=== PATIENT | male | born 1975 | race Caucasian/White ===

== ENCOUNTER 2016-07-01 22:48 | Emergency (ER) | payer BC, OTHER ==
[2016-07-01] MEDS ORDERED: Famotidine IV * 20 MG in NS 0.9% 100 ML* 100 ML IVPB ONE (22:59)
[2016-07-01] MEDS ORDERED: methylPREDNISolone 125 MG* 2 ML VIAL IV ONE (22:59)
[2016-07-01] MEDS ORDERED: NS 0.9% 1000 ML* 1,000 ML IV ONE (22:59)
[2016-07-02 00:49] VITALS: BP 117/76
--- NOTE | 2016-07-02 02:53 | ED ---
Rubin Stafford Karl, scribed for Mohit Fall on 07/01/16 at 2347 . Allergic Reaction/Systemic - HPI Summary HPI Summary: 41 y/o M presents w/ c/o an allergic reaction. Pt stated that he ate a colten approx 1 hr ago and shortly after had itchy hands, swollen lips, and hives all over his body. Pt also noted jaw tightness. Pt took 50 mg Benadryl [employer]. - History of Current Complaint Chief Complaint: EDAllergicReaction Time Seen by Provider: 07/01/16 23:04 Hx Obtained From: Patient Timing: Constant - Allergies/Home Medications Allergies/Adverse Reactions: Allergies Allergy/AdvReac Type Severity Reaction Status Date / Time Honey Allergy Rash Verified 07/01/16 23:07 [place] Flavor Allergy Swelling Verified 07/01/16 23:07 Of Face,Lips,& Throat Home Medications: Home Medications Lixafujn-Zjtxvyujylgi-Egaqqduz [Triumeq 600-50-300 mg] 1 tab PO 07/01/16 [ History] HYDROcodone/ACETAMIN 5-325 MG* [[place] 5-325 TAB*] 1 tab PO Q4H PRN MDD 4 [History Confirmed 07/01/16] Sildenafil Citrate [Viagra] 100 mg PO 07/01/16 [History] Zolpidem TAB* [Ambien TAB*] 10 mg PO BEDTIME PRN 07/01/16 [History Confirmed ] PMH/Surg Hx/FS Hx/Imm Hx Previously Healthy: Yes Infectious Disease History: Denies: Traveled Outside the [place] in Last 30 Days - Family History Known Family History: Negative: Cardiac Disease - Social History Alcohol Use: None Substance Use Type: Reports: None Hx Tobacco Use: No Smoking Status (MU): Never Smoked Tobacco Review of Systems Constitutional: Negative Eyes: Negative ENT: Negative Cardiovascular: Negative Respiratory: Negative Gastrointestinal: Negative Genitourinary: Negative Musculoskeletal: Negative Positive: Rash Neurological: Negative Psychological: Normal All Other Systems Reviewed And Are Negative: Yes Physical Exam Triage Information Reviewed: Yes Vital Signs On Initial Exam: Initial Vitals BP 119/80 07/01/16 23:14 Vital Signs Reviewed: Yes Appearance: Positive: Well-Appearing, No Pain Distress Skin: Positive: Other - diffuse erythematous rash all over body Head/Face: Positive: Normal Head/Face Inspection Eyes: Positive: EOMI, AYALA ENT: Positive: Normal ENT inspection Neck: Positive: Supple, Nontender Respiratory/Lung Sounds: Positive: Clear to Auscultation, Breath Sounds Present Cardiovascular: Positive: RRR, Pulses are Symmetrical in both Upper and Lower Extremities Abdomen Description: Positive: Nontender, Soft Bowel Sounds: Positive: Present Musculoskeletal: Positive: Normal, Strength/ROM Intact Neurological: Positive: Normal, Sensory/Motor Intact, Alert, Oriented to Person Place, Time Psychiatric: Positive: Affect/Mood Appropriate Diagnostics - Vital Signs Vital Signs Temp Pulse Resp BP Pulse Ox 07/02/16 00:49 98.7 F 85 16 117/76 07/02/16 00:45 87 117/76 97 07/02/16 00:30 80 108/83 96 07/02/16 00:01 79 116/84 97 07/02/16 00:00 75 97 07/01/16 23:30 100 128/80 98 07/01/16 23:16 87 97 07/01/16 23:14 119/80 - Laboratory Lab Statement: Any lab studies that have been ordered have been reviewed, and results considered in the medical decision making process. Allergic Reaction Course/Dx - Diagnoses Provider Diagnoses: Food allergy, Allergic reaction Discharge - Discharge Plan Condition: Stable Disposition: HOME Prescriptions: Prednisone [Deltasone] 50 mg PO ONCE #4 tab Patient Education Materials: Food Allergy (ED) Referrals: Dany Vázquez MD [Primary Care Provider] - Additional Instructions: Please follow up with your primary care provider in the next 3 days. The documentation as recorded by the Rubin lewis Karl accurately reflects the service I personally performed and the decisions made by Eufemia rooney Emmanuel.
== END 2016-07-02 00:49 | disposition home or self-care (01) ==
LOC: ED 22:48
DX: T78.1XXA Other adverse food reactions, not elsewhere classified, initial encounter (principal); L50.0 Allergic urticaria; X58.XXXA Exposure to other specified factors, initial encounter; Y92.9 Unspecified place or not applicable
CPT/HCPCS: 96360; 99283; J2930

== ENCOUNTER 2017-02-07 13:26 | Inpatient (IN) | payer BC ==
[2017-02-07 15:16] LABS: Hematocrit 46 % (42-52); Hemoglobin 16.1 g/dl (14.0-18.0); Mean Corpuscular HGB Conc 35 g/dl (31-36); Mean Corpuscular Hemoglobin 31 pg (27-31); Mean Corpuscular Volume 90 fL (80-94); Mean Platelet Volume 10 um3 (7.4-10.4); Red Blood Count 5.14 10^6/ul (4.0-5.4); Red Cell Distribution Width 13 % (10.5-15); White Blood Count 5.3 10^3/ul (3.5-10.8)
[2017-02-07 15:22] LABS: Urine Bilirubin Negative (Negative); Urine Glucose Negative (Negative); Urine Nitrite Negative (Negative)
[2017-02-07 15:41] LABS: ALT 12 U/L (7-52); AST 15 U/L (13-39); Albumin 4.5 g/dL (3.2-5.2); Alkaline Phosphatase 44 U/L (34-104); Anion Gap 6 mmol/L (2-11); BUN/Creatinine Ratio 13.1 (8-20); Blood Urea Nitrogen 21 mg/dL (6-24); CO2 Carbon Dioxide 28 mmol/L (22-32); Calcium 9.8 mg/dL (8.6-10.3); Chloride 104 mmol/L (101-111); EGFR African American 62.2 (>60); EGFR Non-African American 48.4 (>60); Globulin 3.2 g/dL (2-4); Glucose 101 mg/dL (70-100); Potassium 3.8 mmol/L (3.5-5.0); Sodium 138 mmol/L (133-145); Total Protein 7.7 g/dL (6.4-8.9)
[2017-02-07 15:49] LABS: Benzodiazepine Urine Screen None Detected (None Detect)
[2017-02-07 15:50] LABS: Acetaminophen < 15 mcg/mL; Alcohol < 10 mg/dL (<10); Lithium 1.19 mmol/L (0.6-1.2); Salicylate < 2.50 mg/dL (<30)
[2017-02-07 16:03] LABS: TSH (Thyroid Stimulating Horm) 2.18 mcIU/mL (0.34-5.60)
[2017-02-08] MEDS ORDERED: Acetaminophen TAB* 325 MG PO PRN (05:28)
[2017-02-08] MEDS ORDERED: Al Hydrox/Mg Hydrox/Simet LIQ* 30 ML UDC PO PRN (05:28)
[2017-02-08] MEDS ORDERED: ABACAVIR PO SCH (09:00)
[2017-02-08] MEDS ORDERED: DOLUTEGRAVIR PO SCH (09:00)
[2017-02-08] MEDS ORDERED: Lithium Carbonate TAB* 300 MG PO SCH ×3 (09:00→21:00)
[2017-02-08] MEDS ORDERED: LAMIVUDINE PO SCH (09:00)
[2017-02-08] MEDS: Vitamin THERAPEUTIC TAB PO SCH (09:58)
--- NOTE | 2017-02-08 10:05 | HP ---
H&P (Free Text) History and Physical: HPI: ---- Patient is a 41yo male with PPHx significant for Bipolar d/o, ADHD, Social Anxiety d/o, and hx of multiple ED visits due to psychotic(paranoia/LYLE) symptoms. Patient presents to the [facility] ED, brought in by his boyfriend, reporting worsening MH symptoms over the past 3 days. Of note, patient reports recently starting [place]. He reports started back with outpt MH services in 12/2016, after years without. Patient reports being started at that time on [place] 300mg po TID. He reports 1 week ago his dose was increased to 1200mg daily(600mg in am, 300mg in pm, and another 300mg po qhs) for mood stabilization. Patient reports since this dose increase, he has experienced disorganized thinking, memory loss , difficulty expressing himself and delayed speech. Patient reports these symptoms have exacerbated over the last 3 days. He reports last taking [place] the morning of presentation to the [facility] ED. Patient reports initially seeking to re-start outpt MH treatment due to difficulties at work. He reports dx of ADHD and treatment with Adderall. Patient reports starting Adderall in 2002 and finding benefit to his symptoms up until 2012. He reports during 2013 dealing with SAURABH issues, and reports daily use of illicit substances. He reports sobering up within the same year. Patient reports finding after becoming sober that his Adderall dose was causing paranoia, racing thoughts, rumination and LYLE. Patient reports hx of multiple ED visits due to "noticing elements of design". Patient described this as "noticing the correlation of things". Patient reports then noticing these correlations, he would ruminate as to their meaning. Patient stated, "my inclination is to research". Of note, patient is HIV positive and has been on multiple meds which may have affected the metabolism of Adderall. Patient also would like a CT of head to r/o structural issues. Patient reports his rumination on these things have caused decreased productivity at work and recent reprimands. Patient feels these psychotic symptoms were likely amphetamine induced. Patient has since stopped Adderall about 1 month ago. He reports though ongoing rumination, LYLE, and episodes of disorganized thinking. He reports desire to start another med to mx his ADHD. On the unit, patient reports increased anxiety, ongoing LYLE, episodes of disorganized thinking, memory loss, difficulty expressing himself and delayed speech. Patient reports he has noted improved memory, difficulty expressing himself, and improved delay in his speech. Patient reports his sleep is wnl. He reports this due to benefit of Ambien. Patient denies alcohol abuse. Patient denies use of illicit substances in the last 5 years. Patient reports multiple remote suicide attempts with hospitalizations, last 5yrs ago by cutting. Patient is amenable to a wash out period without mood stabilizers over the weekend and re-evaluation of symptoms on Sunday. He reports feeling safe on the unit. He denies SI/HI and AH/VH. Past Psych Hx: Inpt - Patient has multiple inpt hospitalizations for decompensated schizophrenia symptoms. Outpt - Only recently began with an outpt provider Psychotropic med hx - Celexa(s/e - induced hypomania), [place], Depakote, Klonopin Suicide attempt Hx / SIB Hx: Patient reports multiple remote suicide attempts with hospitalizations, last 5yrs ago by cutting. Substance Hx: Patient denies alcohol abuse. Patient denies use of illicit substances in the last 5 years. Medical Hx: HIV TBI Allergies: --------- [place] Flavor Amphetamine Dextroamphetamine Social Hx: --------- -Patient in a long-term relationship with his male partner. -Patient lives with his partner. -Patient is a college grad. -Patient is currently employed. -Patient reports assess to weapons in his home. Home Medications: Home Medications Medication Instructions Recorded Confirmed Type Bglknzjy-Ysgvandqdvhc-Kghpeptl 1 tab PO DAILY 07/01/16 02/08/17 History [Triumeq 600-50-300 mg] Sildenafil Citrate [Viagra] 100 mg PO DAILY PRN 07/01/16 02/08/17 History Zolpidem TAB* [Ambien TAB*] 10 mg PO BEDTIME 07/01/16 02/08/17 History [place] Carbonate [Lithobid] 300 mg PO BEDTIME 02/08/17 02/08/17 History [place] Carbonate [Lithobid] 300 mg PO QPM 02/08/17 02/08/17 History [place] Carbonate [Lithobid] 600 mg PO DAILY 02/08/17 02/08/17 History VITALS: Vital Signs (72 hours) 02/07/17 02/08/17 02/08/17 13:28 07:38 10:35 Temperature 98.4 F 98.5 F Pulse Rate 93 82 Respiratory 16 16 16 Rate Blood Pressure 117/84 121/80 (mmHg) O2 Sat by Pulse 97 99 Oximetry 02/08/17 02/08/17 02/09/17 20:03 23:20 06:51 Temperature 98.5 F Pulse Rate 65 Respiratory 16 18 16 Rate Blood Pressure 116/81 (mmHg) O2 Sat by Pulse 99 Oximetry 02/09/17 08:34 Temperature Pulse Rate Respiratory 16 Rate Blood Pressure (mmHg) O2 Sat by Pulse Oximetry LABS: ------- Laboratory Tests 02/07/17 02/07/17 02/07/17 14:05 15:00 15:00 WBC 5.3 RBC 5.14 Hgb 16.1 Hct 46 MCV 90 MCH 31 MCHC 35 RDW 13 Plt Count 209 MPV 10 Neut % (Auto) 59.6 Lymph % (Auto) 30.4 [place] % (Auto) 6.8 Eos % (Auto) 2.1 Baso % (Auto) 1.1 Absolute Neuts (auto) 3.2 Absolute Lymphs (auto) 1.6 Absolute Monos (auto) 0.4 Absolute Eos (auto) 0.1 Absolute Basos (auto) 0.1 Absolute Nucleated RBC 0 Nucleated RBC % 0 Sodium 138 Potassium 3.8 Chloride 104 Carbon Dioxide 28 Anion Gap 6 BUN 21 Creatinine 1.60 H Est GFR ( Amer) 62.2 Est GFR (Non-Af Amer) 48.4 BUN/Creatinine Ratio 13.1 Glucose 101 H Calcium 9.8 Total Bilirubin 0.80 AST 15 ALT 12 Alkaline Phosphatase 44 Total Protein 7.7 Albumin 4.5 Globulin 3.2 Albumin/Globulin Ratio 1.4 TSH 2.18 Urine Color Yellow Urine Appearance Cloudy Urine pH 7.0 Ur Specific [place] 1.023 Urine Protein Negative Urine Ketones Negative Urine Blood Negative Urine Nitrate Negative Urine Bilirubin Negative Urine Urobilinogen Positive H Ur Leukocyte Esterase Negative Urine Glucose Negative Salicylates < 2.50 Urine Opiates Screen Acetaminophen < 15 Ur Barbiturates Screen Ur Phencyclidine Scrn Ur Amphetamines Screen U Benzodiazepines Scrn [place] 1.19 Urine Cocaine Screen U Cannabinoids Screen Serum Alcohol < 10 02/07/17 15:00 WBC RBC Hgb Hct MCV MCH MCHC RDW Plt Count MPV Neut % (Auto) Lymph % (Auto) [place] % (Auto) Eos % (Auto) Baso % (Auto) Absolute Neuts (auto) Absolute Lymphs (auto) Absolute Monos (auto) Absolute Eos (auto) Absolute Basos (auto) Absolute Nucleated RBC Nucleated RBC % Sodium Potassium Chloride Carbon Dioxide Anion Gap BUN Creatinine Est GFR ( Amer) Est GFR (Non-Af Amer) BUN/Creatinine Ratio Glucose Calcium Total Bilirubin AST ALT Alkaline Phosphatase Total Protein Albumin Globulin Albumin/Globulin Ratio TSH Urine Color Urine Appearance Urine pH Ur Specific [place] Urine Protein Urine Ketones Urine Blood Urine Nitrate Urine Bilirubin Urine Urobilinogen Ur Leukocyte Esterase Urine Glucose Salicylates Urine Opiates Screen None detected Acetaminophen Ur Barbiturates Screen None detected Ur Phencyclidine Scrn None detected Ur Amphetamines Screen None detected U Benzodiazepines Scrn None detected [place] Urine Cocaine Screen None detected U Cannabinoids Screen None detected Serum Alcohol PHYSICAL EXAM: GEN - in NAD, thin build, looks stated age HEENT - NC/AT, EOEMI, no lesions or discharge noted, conjunctivae clear NECK - supple, no JVD, no LAD, CARDIAC - S1/S2, no discernable murmurs ABD - (+) BS x 4 quad, non-tender EXT - no edema, no lesions MUSCULOSKEL - 5/5 muscle strength in all extremities SKIN - intact, no lesions NEURO - CN 2-12, steady gait MSE: ----- Appearance - thin build male, looks stated age fair hygeine, in NAD Behavior - mild PMA, cooperative Speech - spontaneous, RVR, prosody wnl Eye Contact - good Mood - "anxious" Affect - anxious TP - linear TC - ruminations on recent MH symptoms, what caused them Perception - LYLE, no AH/VH reported, no paranoia Orientation - A&Ox4 Insight - fair Judgment - fair Impulse control - fair SI / HI - SI prior to admission with plan to stop his HIV meds, currently he denies both ASSESSMENT: 1. [place] allergic response 2. Bipolar 2 d/o, depressed, severe w/PFs 3. Social Anxiety d/o 4. ADHD PLAN: ------ 1. Continue admission to [facility] for safety and symptom mx. 2. Continue HIV meds as currently prescribed. 3. Will D/C [place] and add as an allergy AED elevated Creatinine and decreased GFR. Patient has only been on med 1 week. 4. Patient amenable to a wash out period over the upcoming weekend. Will then re -evaluate patient's symptoms. 5. Patient gives informed consent to start Gabapentin for current anxiety. 6. Will continue to HOLD Adderall due to patient's recent sensitivity to it. Likely drug-drug interactions with HIV meds affecting Adderall metabolism. 7. Continue Ambien 10mg po qhs for insomnia. 8. Obtain collateral from [facility] providers and patient's partner. 9. Patient to participate in milieu activities and groups.
[2017-02-08] MEDS: Gabapentin CAP(*) 100 MG PO SCH (20:03)
[2017-02-08] MEDS: Zolpidem TAB* 10 MG PO SCH (20:03)
[2017-02-08] MEDS: LAMIVUDINE PO SCH (20:25)
[2017-02-08] MEDS: DOLUTEGRAVIR PO SCH (20:25)
[2017-02-08] MEDS: ABACAVIR PO SCH (20:25)
[2017-02-08] MEDS ORDERED: ABACAVIR DOLUTEGRAVIR LAMIVUDI PO SCH (21:00)
[2017-02-09] MEDS: Vitamin THERAPEUTIC TAB PO SCH (08:33)
[2017-02-09] MEDS: Gabapentin CAP(*) 100 MG PO SCH ×3 (08:34→20:29)
--- NOTE | 2017-02-09 11:22 | ED ---
Antione Stafford Nilda, scribed for Kj Henry MD on 02/07/17 at 1923 . Psychiatric Complaint - HPI Summary HPI Summary: This patient is a 41 year old M presenting to with a chief complaint of general psychiatric issues that have been exacerbated for the past few days. Patient is taking [place] and recently had a dose increase by his psychiatric nurse. The patient rates the pain 0/10 in severity. Patient reports disorganized thoughts, memory loss, racing thoughts, paranoia, and speech difficulty. Patient denies loss of appetite and SI. - History Of Current Complaint Chief Complaint: EDMentalHealth Hx Obtained From: Patient Onset/Duration: Lasting Days, Still Present Timing: Constant Severity Currently: Mild Character: Frustrated Aggravating Factor(s): Other - Medication dosage increase ([place]) Associated Signs And Symptoms: Positive: Confused, Paranoid Behavior Related History: Positive For: Prior Psychiatric Issues - Allergies/Home Medications Allergies/Adverse Reactions: Allergies Allergy/AdvReac Type Severity Reaction Status Date / Time [place] Allergy See Comment Verified 02/08/17 17:34 [place] Flavor Allergy Swelling Verified 02/07/17 13:29 Of Face,Lips,& Throat Amphetamine [From Adderall] AdvReac Unknown See Comment Verified 02/08/17 18:29 Dextroamphetamine AdvReac Unknown See Comment Verified 02/08/17 18:29 [From Adderall] PMH/Surg Hx/FS Hx/Imm Hx Sensory History: Denies: Hx Legally Blind EENT History: Denies: Hx Deafness - Immunization History Date of Tetanus Vaccine: utd Date of Influenza Vaccine: fall 2015 Infectious Disease History: No Infectious Disease History: Denies: Traveled Outside the [place] in Last 30 Days - Family History Known Family History: Positive: Hypertension, Diabetes Negative: Cardiac Disease - Social History Alcohol Use: None Substance Use Type: Reports: None Hx Tobacco Use: No Smoking Status (MU): Never Smoked Tobacco Review of Systems Negative: Fever, Chills Negative: Erythema Negative: Sore Throat Negative: Chest Pain Negative: Shortness Of Breath, Cough Positive: Other - negative loss of appetite. Negative: Abdominal Pain, Vomiting , Nausea Negative: dysuria, hematuria Negative: Myalgia, Edema Negative: Rash Neurological: Other - negative dizziness Psychological: Other - disorganized thoughts, memory loss, racing thoughts, paranoia, and speech difficulty; negative SI All Other Systems Reviewed And Are Negative: Yes Physical Exam - Summary Physical Exam Summary: Constitutional: Well-developed, Well-nourished, Alert. (-) Distressed Skin: Warm, Dry HENT: Normocephalic; Atraumatic Eyes: Conjunctival injection Neck: Musculoskeletal ROM normal neck. (-) JVD, (-) Stridor, (-) Tracheal deviation Cardio: Rhythm regular, rate normal, Heart sounds normal; Intact distal pulses; The pedal pulses are 2+ and symmetric. Radial pulses are 2+ and symmetric. (-) Murmur Pulmonary/Chest wall: Effort normal. (-) Respiratory distress, (-) Wheezes, (-) Rales Abd: Soft, (-) Tenderness, (-) Distension, (-) Guarding, (-) Rebound Musculoskeletal: (-) Edema Lymph: (-) Cervical adenopathy Neuro: Alert, Oriented x3 Psych: Pressured speech, anxious, bearing Triage Information Reviewed: Yes Vital Signs On Initial Exam: Initial Vitals Temp Pulse Resp BP Pulse Ox 98.4 F 93 16 117/84 97 02/07/17 13:28 02/07/17 13:28 02/07/17 13:28 02/07/17 13:28 02/07/17 13:28 Vital Signs Reviewed: Yes - [place] Coma Scale Coma Scale Total: 15 Diagnostics - Vital Signs Vital Signs Temp Pulse Resp BP Pulse Ox 02/07/17 13:28 98.4 F 93 16 117/84 97 - Laboratory Lab Results: Lab Results 02/07/17 02/07/17 02/07/17 Range/Units 14:05 15:00 15:00 WBC 5.3 (3.5-10.8) 10^3/ul RBC 5.14 (4.0-5.4) 10^6/ul Hgb 16.1 (14.0-18.0) g/dl Hct 46 (42-52) % MCV 90 (80-94) fL MCH 31 (27-31) pg MCHC 35 (31-36) g/dl RDW 13 (10.5-15) % Plt Count 209 (150-450) 10^3/ul MPV 10 (7.4-10.4) um3 Neut % (Auto) 59.6 (38-83) % Lymph % (Auto) 30.4 (25-47) % [place] % (Auto) 6.8 (1-9) % Eos % (Auto) 2.1 (0-6) % Baso % (Auto) 1.1 (0-2) % Absolute Neuts (auto) 3.2 (1.5-7.7) 10^3/ul Absolute Lymphs (auto) 1.6 (1.0-4.8) 10^3/ul Absolute Monos (auto) 0.4 (0-0.8) 10^3/ul Absolute Eos (auto) 0.1 (0-0.6) 10^3/ul Absolute Basos (auto) 0.1 (0-0.2) 10^3/ul Absolute Nucleated RBC 0 10^3/ul Nucleated RBC % 0 Sodium 138 (133-145) mmol/L Potassium 3.8 (3.5-5.0) mmol/L Chloride 104 (101-111) mmol/L Carbon Dioxide 28 (22-32) mmol/L Anion Gap 6 (2-11) mmol/L BUN 21 (6-24) mg/dL Creatinine 1.60 H (0.67-1.17) mg/dL Est GFR ( Amer) 62.2 (>60) Est GFR (Non-Af Amer) 48.4 (>60) BUN/Creatinine Ratio 13.1 (8-20) Glucose 101 H (70-100) mg/dL Calcium 9.8 (8.6-10.3) mg/dL Total Bilirubin 0.80 (0.2-1.0) mg/dL AST 15 (13-39) U/L ALT 12 (7-52) U/L Alkaline Phosphatase 44 (34-104) U/L Total Protein 7.7 (6.4-8.9) g/dL Albumin 4.5 (3.2-5.2) g/dL Globulin 3.2 (2-4) g/dL Albumin/Globulin Ratio 1.4 (1-3) TSH 2.18 (0.34-5.60) mcIU/mL Urine Color Yellow Urine Appearance Cloudy Urine pH 7.0 (5-9) Ur Specific [place] 1.023 (1.010-1.030) Urine Protein Negative (Negative) Urine Ketones Negative (Negative) Urine Blood Negative (Negative) Urine Nitrate Negative (Negative) Urine Bilirubin Negative (Negative) Urine Urobilinogen Positive H (Negative) Ur Leukocyte Esterase Negative (Negative) Urine Glucose Negative (Negative) Salicylates < 2.50 (<30) mg/dL Urine Opiates Screen (None Detect) Acetaminophen < 15 mcg/mL Ur Barbiturates Screen (None Detect) Ur Phencyclidine Scrn (None Detect) Ur Amphetamines Screen (None Detect) U Benzodiazepines Scrn (None Detect) [place] 1.19 (0.6-1.2) mmol/L Urine Cocaine Screen (None Detect) U Cannabinoids Screen (None Detect) Serum Alcohol < 10 (<10) mg/dL 02/07/17 Range/Units 15:00 WBC (3.5-10.8) 10^3/ul RBC (4.0-5.4) 10^6/ul Hgb (14.0-18.0) g/dl Hct (42-52) % MCV (80-94) fL MCH (27-31) pg MCHC (31-36) g/dl RDW (10.5-15) % Plt Count (150-450) 10^3/ul MPV (7.4-10.4) um3 Neut % (Auto) (38-83) % Lymph % (Auto) (25-47) % [place] % (Auto) (1-9) % Eos % (Auto) (0-6) % Baso % (Auto) (0-2) % Absolute Neuts (auto) (1.5-7.7) 10^3/ul Absolute Lymphs (auto) (1.0-4.8) 10^3/ul Absolute Monos (auto) (0-0.8) 10^3/ul Absolute Eos (auto) (0-0.6) 10^3/ul Absolute Basos (auto) (0-0.2) 10^3/ul Absolute Nucleated RBC 10^3/ul Nucleated RBC % Sodium (133-145) mmol/L Potassium (3.5-5.0) mmol/L Chloride (101-111) mmol/L Carbon Dioxide (22-32) mmol/L Anion Gap (2-11) mmol/L BUN (6-24) mg/dL Creatinine (0.67-1.17) mg/dL Est GFR ( Amer) (>60) Est GFR (Non-Af Amer) (>60) BUN/Creatinine Ratio (8-20) Glucose (70-100) mg/dL Calcium (8.6-10.3) mg/dL Total Bilirubin (0.2-1.0) mg/dL AST (13-39) U/L ALT (7-52) U/L Alkaline Phosphatase (34-104) U/L Total Protein (6.4-8.9) g/dL Albumin (3.2-5.2) g/dL Globulin (2-4) g/dL Albumin/Globulin Ratio (1-3) TSH (0.34-5.60) mcIU/mL Urine Color Urine Appearance Urine pH (5-9) Ur Specific [place] (1.010-1.030) Urine Protein (Negative) Urine Ketones (Negative) Urine Blood (Negative) Urine Nitrate (Negative) Urine Bilirubin (Negative) Urine Urobilinogen (Negative) Ur Leukocyte Esterase (Negative) Urine Glucose (Negative) Salicylates (<30) mg/dL Urine Opiates Screen None detected (None Detect) Acetaminophen mcg/mL Ur Barbiturates Screen None detected (None Detect) Ur Phencyclidine Scrn None detected (None Detect) Ur Amphetamines Screen None detected (None Detect) U Benzodiazepines Scrn None detected (None Detect) [place] (0.6-1.2) mmol/L Urine Cocaine Screen None detected (None Detect) U Cannabinoids Screen None detected (None Detect) Serum Alcohol (<10) mg/dL Result Diagrams: 02/07/17 15:00 02/07/17 15:00 Lab Statement: Any lab studies that have been ordered have been reviewed, and results considered in the medical decision making process. Course/Dx - Course Course Of Treatment: This patient is a 41 year old M presenting to with a chief complaint of general psychiatric issues that have been exacerbated for the past few days. Patient is taking [place] and recently had a dose increase by his psychiatric nurse. The patient rates the pain 0/10 in severity. Patient reports disorganized thoughts, memory loss, racing thoughts, paranoia, and speech difficulty. Patient denies loss of appetite and SI. [1600] Patient is cleared for MHE. - Differential Dx/Clinical Impression Provider Diagnosis: Paranoid delusion, Psychosis Discharge - Discharge Plan Condition: Stable Disposition: OTHER Discharge Disposition Comment: Mental Health Evaluation The documentation as recorded by the scribe, Talbot,Lakeisha accurately reflects the service I personally performed and the decisions made by me, Kj Henry MD.
--- NOTE | 2017-02-09 12:12 | PN ---
Subjective - Subjective Service Type: 33951 Hosp care 15 min low complexity Subjective: Patient noted to be social with select peers and staff in the milieu. Patient calm, pleasant, and cooperative with staff. He is participating in groups. Patient has ongoing PMA and is anxious in affect. He reports ongoing improvement in his memory and ability to express himself w/o delayed speech. He reports also, ongoing anxiety and LYLE which causes patient to pursue in his mind the meaning of these associations. Patient reports ongoing guilt regarding his behavior affect being diagnosed with HIV. Patients reports not behaving like himself then. He reported a period of significant drug use, anger, and sleeping with men unprotected even though knowing his Dx. Patient reports correlation with the fact that a peer on the unit he spoke with works in the [employer] department. Also during the interview, patient noticed a newspaper clipping with title '...pled not-guilty..". Patient reported these events spoke to his internalized desire to be punished for what he did. Patient encouraged to forgive himself and know he has grown from that place. Patient consumed with correlations he sees on the unit and other LYLE. Patient reports fair sleep and appetite. He denies SI/HI and AH/VH. Objective - Appearance Appearance: Well Developed/Nourished, Thin Framed Dysmorphic Features: No Hygiene: Normal Grooming: Fairly Well Kept - Behavior Psychomotor Activities: Abnormal-Increased Exhibits Abnormal Movement: No - Attitude and Relatedness Attitude and Relatedness: Cooperative Eye Contact: Fair - Speech Quality: Unpressured Latencies: Short Quantity: Copious - Mood Patient's Decription of Mood: "Anxious" - Affect Observed Affect: Tense Affect Consistent with: Dysphoria - Thought Process Patient's Thought Process: Loose Associations Thought Content: No Passive Wish, No Suicidal Planning, No Homicidal Ideation, No Paranoid Ideation - Sensorium Experiencing Hallucinations: No, Sensorium is Clear Type of Hallucinations: Visual: No, Auditory: No, Command: No - Level of Consciousness Level of Consciousness: Alert Orientation: Yes Intact, Yes Orientated to Time, Yes Orientated to Place, Yes Orientated to Person - Impulse Control Impulse Control: Intact - Insight and Judgement Insight and Judgement: Fair - Group Participation Particating in Group Activities: Yes - Medication Management Medication Management Adherence: Yes Assessment - Assessment Merits Inpatient Hospitalization: For Immediate Safety, For Stabilization Inpatient DSM-IV Dx: ASSESSMENT: . 1. [place] allergic response. 2. Bipolar 2 d/o, depressed, severe w/PFs. 3. Social Anxiety d/o. 4. ADHD Plan - Plan Treatment Plan: Name: MARY DAVIS Birthdate: 1975 [id number] PLAN: ------ 1. Continue admission to [facility] for safety and symptom mx. 2. Continue HIV meds as currently prescribed. 3. Will D/C [place] and add as an allergy AED elevated Creatinine and decreased GFR. Patient has only been on med 1 week. 4. Patient amenable to a wash out period over the upcoming weekend with no mood stabilizer or antipsychotic. Will re-evaluate patient's symptoms on Sunday. 5. Continue Gabapentin for current anxiety. 6. Will continue to HOLD Adderall due to patient's recent sensitivity to it. Likely drug-drug interactions with HIV meds affecting Adderall metabolism. 7. Patient gave informed consent to start Strattera 25mg po daily for mx of ADHD symptoms. 8. Will start Clonazepam 0.5mg po BID for ongoing significant anxiety. 9. Continue Ambien 10mg po qhs for insomnia. 10. Will order CT brain as patient is HIV positive and may have structural defects of numerous possible etiologies. 11. Obtain collateral from [facility] providers and patient's partner. 12. Patient to participate in milieu activities and groups. Medications: Current Medications Acetaminophen (Tylenol Tab*) 650 mg PO Q4H PRN PRN Reason: PAIN or TEMP > 101 F Al Hydrox/Mg Hydrox/Simethicone (Maalox Plus*) 30 ml PO Q4H PRN PRN Reason: INDIGESTION Gabapentin (Neurontin Cap(*)) 200 mg PO TID [facility] Last Admin: 02/09/17 08:34 Dose: 200 mg Multivitamins (Theragran Tab*) 1 tab PO DAILY [facility] Last Admin: 02/09/17 08:33 Dose: Not Given Pto Nf Med* Triumeq (Abacavir, Dolutegravir, Lamivudine) 1 admin PO BEDTIME [facility] Last Admin: 02/08/17 20:25 Dose: 1 admin Zolpidem Tartrate (Ambien Tab*) 10 mg PO BEDTIME [facility] Last Admin: 02/08/17 20:03 Dose: 10 mg - Discharge Plan Discharge Plan: Outpatient Follow Up Outpatient Program: Private Clinician(s)
--- NOTE | 2017-02-09 14:32 | PN ---
[facility]: Group Therapy Note - Service Type Service Type: [id number] Group Psychotherapy - Cognitive Behavioral Group Therapy ( CBT):Patient was attentive and participatory in CBT programming this morning, and remained in good behavioral control. Patient expressed positive insights regarding relevant treatment interventions and goals.
[2017-02-09] MEDS ORDERED: clonazePAM TAB(*) 0.5 MG PO SCH ×2 (18:10→18:14)
[2017-02-09] MEDS ORDERED: clonazePAM TAB(*) 0.5 MG PO ONE (18:15)
--- NOTE | 2017-02-09 19:13 | CONS ---
PSYCHOLOGICAL REPORT: DATE OF CONSULT: 02/09/17 REASON FOR REFERRAL: John was referred for personality testing secondary to diagnostic concerns with rule out reflecting psychotic range difficulties consistent with other schizophrenic symptoms and/or bipolar II symptomatology. TEST ADMINISTERED: John completed the [place] Multiphasic Personality Inventory-2 (MMPI-2). He was given feedback regarding test results in individual conversation. 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 He describes aspirations about possibly entering an [employer] program as he is hopeful of fulfilling potential in a more fulfilling fashion. John describes historical difficulties with attention deficit hyperactivity disorder and in fact was displaying some mild agitation throughout the interview characterized by foot and hand movement. He impresses as being able to attend to discussion fairly well, however, but describes historical problems with focus to the point of being very disruptive to his ability to officially process information. He describes and points some various kinds of ticks to help him control his habitual difficulties and attention deficit symptoms, describing how he rewinds himself to "rely on the process." He describes his use of stimulants as presenting with recurrent difficulties in regards to increased disorganized thinking to the point of psychosis at times. He feels that this exacerbates a bipolar process as well where his thinking tends to disintegrate and impair his intellectual function. Recent efforts to control mood and stability with [place] were met with an apparent allergic reaction where he apparently expressed some liver toxicity. John identifies as homosexual and in part his presentation included the thoughts of discontinuing his HIV medications. BEHAVIORAL OBSERVATIONS: John has been seen in the context of cognitive behavioral group psychotherapy as well as in the aforementioned individual session for feedback regarding test results. Presently, John is able to discuss his history in a relevant and topical fashion and expresses thoughts in a linear and coherent fashion. He feels that this has improved markedly since admission and is able to recall his difficulties with disorganization in thought with clarity. He is concerned about possible psychotic processing, describing in some detail what impress this underwriter mortgage loan as an internal dialogue. However, John feels this internal dialogue is very intrusive to his functioning at times and although he acknowledges it as being from within and generated by his own thoughts, is still quite disturbed at the intrusiveness of this process at times. In the group context, John presents with good affect that is appropriately variable with conversation. He is able to track clinical discussions and exhibits a healthy sense of humor. His affect is appropriately variable with conversation, and he interacts with peers and staff in an empathic and respectful fashion. He has been compliant with recommended medications and impresses as being grateful for having an opportunity to address his questions about medications in a safe and structured unit. TEST RESULTS: John provides a valid protocol on this administration of the MMPI- 2 having slight elevations on the emotional stress scales and concomitant low scoring occurring on emotional coping and self-esteem. He has slight elevations on the depression and schizophrenia scales, as well as on the social introversion scale. All these elevations occur between T scores of 65 and 70 with schizophrenia scale being the highest point elevation. Feedback with John emphasized the importance of trying to mediate attention deficit symptomatology without utilization of a stimulant as this appears to have led to recurrent disruptions in cognitive symptoms. He impresses as having good insight in this regard and is hopeful of finding success in a secondary mood stabilizing medication to effectively ameliorate his symptomatology. DIAGNOSTIC IMPRESSION: Supports bipolar II process occurring. There are no concerns regarding characterological vulnerabilities consistent with an axis II diagnosis. [id number]/[id number] #: [id number] SHEA
[2017-02-09] MEDS: DOLUTEGRAVIR PO SCH (20:28)
[2017-02-09] MEDS: LAMIVUDINE PO SCH (20:28)
[2017-02-09] MEDS: ABACAVIR PO SCH (20:28)
[2017-02-09] MEDS: Zolpidem TAB* 10 MG PO SCH (20:29)
--- NOTE | 2017-02-09 21:28 | RAD ---
INDICATION: Memory difficulty COMPARISON: None. TECHNIQUE: Contiguous axial sections of the brain were obtained from the skull base to the vertex without contrast. FINDINGS: The ventricles, cisterns and sulci are within normal limits. The awan-white matter differentiation is adequately maintained and there is no sulcal effacement. No significant focal abnormality or mass effect is present. There is no evidence for intracranial hemorrhage. No significant focal osseous abnormality is present. The visualized portion of the paranasal sinuses and mastoid air cells appear clear. IMPRESSION: Normal CT of the brain.
[2017-02-10] MEDS: Vitamin THERAPEUTIC TAB PO SCH (08:03)
[2017-02-10] MEDS: Gabapentin CAP(*) 100 MG PO SCH ×2 (08:03→13:51)
[2017-02-10] MEDS: CMCS: Atomoxetine(NF) 25 MG CAP PO SCH (08:04)
[2017-02-10] MEDS: clonazePAM TAB(*) 0.5 MG PO SCH ×2 (08:04→13:51)
[2017-02-11] MEDS: clonazePAM TAB(*) 0.5 MG PO SCH ×2 (07:14→13:38)
[2017-02-11] MEDS: Gabapentin CAP(*) 100 MG PO SCH ×4 (08:25→20:03)
[2017-02-11] MEDS: CMCS: Atomoxetine(NF) 25 MG CAP PO SCH (08:25)
[2017-02-11] MEDS: Vitamin THERAPEUTIC TAB PO SCH (08:26)
--- NOTE | 2017-02-11 14:39 | PN ---
<RodrigueAnn - Last Filed: 02/11/17 15:02> Subjective - Subjective Service Type: 95071 Hosp care 15 min low complexity Subjective: Patient found walking around milieu holding his notebook. He is pleasant and wants to talk. He is alert and oriented, speech is pressured, thoughts are organized, all related to his "analytical plan" to make his life better. Denies suicidal ideation or auditory/visual hallucinations. He feels Klonopin is helping his anxiety. 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 Overall pleasant, somewhat grandiose. Objective - Appearance Appearance: Well Developed/Nourished Dysmorphic Features: No Hygiene: Normal Grooming: Fairly Well Kept - Behavior Psychomotor Activities: Normal Exhibits Abnormal Movement: No - Attitude and Relatedness Attitude and Relatedness: Cooperative Eye Contact: Fair - Speech Quality: Pressured Latencies: Short Quantity: Copious - Mood Patient's Decription of Mood: "Good" - Affect Observed Affect: Fair Affect Consistent with: Dysphoria - Thought Process Patient's Thought Process: Coherent, Goal Directed Thought Content: No Passive Wish, No Suicidal Planning, No Homicidal Ideation, No Paranoid Ideation - Sensorium Experiencing Hallucinations: No, Sensorium is Clear Type of Hallucinations: Visual: No, Auditory: No, Command: No - Level of Consciousness Level of Consciousness: Alert Orientation: Yes Intact, Yes Orientated to Time, Yes Orientated to Place, Yes Orientated to Person - Impulse Control Impulse Control: Tenuous - Insight and Judgement Insight and Judgement: Impaired - Group Participation Particating in Group Activities: Yes - Medication Management Medication Management Adherence: Yes Assessment - Assessment Merits Inpatient Hospitalization: For Stabilization, For Ongoing Evaluation, Consolidate Improvements Inpatient DSM-IV Dx: ASSESSMENT: . 1. [place] allergic response. 2. Bipolar 2 d/o, depressed, severe w/PFs. 3. Social Anxiety d/o. 4. ADHD Clinical Impression: This 41 yr.old male with history of Bipolar, ADHD, social anxiety and substance use d/o.with multiple ED visits for psychotic thoughts (paranoia). Brought to ED by boyfriend for worsening symptoms of psychosis. He was last hospitalized 5 years go with suicidal ideation and cutting. Reports stopping substance use in 2012. Had not received psychiatric outpatient treatment for 5 years; began outpatient treatment again in 12/2016, when he was started on [place] 300mg, tid.One week prior to hospitalization, [place] was increased to 600mg AM, 300mg afternoon and hs. He reports since increase in disorganized thinking, memory loss and being unable to express himself verbally.Patient agreed to withholding of mood stabilizers through the weekend with reassessment of need on Sunday. He is medically stable and taking his HIV medications as he was at home. Requires continued hospitalization for further evaluation and treatment. Plan - Plan Treatment Plan: Name: MARY DAVIS Birthdate: 1975 [id number] Medications: Current Medications Acetaminophen (Tylenol Tab*) 650 mg PO Q4H PRN PRN Reason: PAIN or TEMP > 101 F Al Hydrox/Mg Hydrox/Simethicone (Maalox Plus*) 30 ml PO Q4H PRN PRN Reason: INDIGESTION Atomoxetine HCl (Strattera(Nf)) 25 mg PO DAILY [facility] Last Admin: 02/11/17 08:25 Dose: 25 mg Clonazepam (Klonopin Tab(*)) 0.5 mg PO 0700,1400 [facility] Last Admin: 02/11/17 13:38 Dose: 0.5 mg Gabapentin (Neurontin Cap(*)) 200 mg PO TID [facility] Last Admin: 02/11/17 13:39 Dose: 200 mg Multivitamins (Theragran Tab*) 1 tab PO DAILY [facility] Last Admin: 02/11/17 08:26 Dose: Not Given Pto Nf Med* Triumeq (Abacavir, Dolutegravir, Lamivudine) 1 admin PO BEDTIME [facility] Last Admin: 02/09/17 20:28 Dose: 1 admin Zolpidem Tartrate (Ambien Tab*) 10 mg PO BEDTIME [facility] Last Admin: 02/09/17 20:29 Dose: 10 mg <Blayne Gamino - Last Filed: 02/11/17 18:16> Subjective - Subjective Subjective: Reviewed this note written by student psychiatric nurse practitioner, Ann Husain, and approved it after discussion with her. Plan - Plan Treatment Plan: Name: MARY DAVIS Birthdate: 1975 [id number] Medications: Current Medications Acetaminophen (Tylenol Tab*) 650 mg PO Q4H PRN PRN Reason: PAIN or TEMP > 101 F Al Hydrox/Mg Hydrox/Simethicone (Maalox Plus*) 30 ml PO Q4H PRN PRN Reason: INDIGESTION Atomoxetine HCl (Strattera(Nf)) 25 mg PO DAILY [facility] Last Admin: 02/11/17 08:25 Dose: 25 mg Clonazepam (Klonopin Tab(*)) 0.5 mg PO 0700,1400 [facility] Last Admin: 02/11/17 13:38 Dose: 0.5 mg Gabapentin (Neurontin Cap(*)) 200 mg PO TID [facility] Last Admin: 02/11/17 17:55 Dose: Not Given Multivitamins (Theragran Tab*) 1 tab PO DAILY [facility] Last Admin: 02/11/17 08:26 Dose: Not Given Pto Nf Med* Triumeq (Abacavir, Dolutegravir, Lamivudine) 1 admin PO BEDTIME [facility] Last Admin: 02/11/17 17:56 Dose: Not Given Zolpidem Tartrate (Ambien Tab*) 10 mg PO BEDTIME [facility] Last Admin: 02/11/17 17:56 Dose: Not Given
[2017-02-11] MEDS: Zolpidem TAB* 10 MG PO SCH ×2 (17:56→20:53)
[2017-02-11] MEDS: ABACAVIR PO SCH ×2 (17:56→20:04)
[2017-02-11] MEDS: DOLUTEGRAVIR PO SCH ×2 (17:56→20:04)
[2017-02-11] MEDS: LAMIVUDINE PO SCH ×2 (17:56→20:04)
[2017-02-12] MEDS: Gabapentin CAP(*) 100 MG PO SCH ×3 (07:15→19:35)
[2017-02-12] MEDS: clonazePAM TAB(*) 0.5 MG PO SCH ×2 (07:15→13:58)
[2017-02-12] MEDS: CMCS: Atomoxetine(NF) 25 MG CAP PO SCH (07:16)
[2017-02-12] MEDS: Vitamin THERAPEUTIC TAB PO SCH (09:46)
--- NOTE | 2017-02-12 17:46 | PN ---
Subjective - Subjective Service Type: [id number] Hosp care 15 min low complexity Subjective: Mary remains the same with regards to his understanding of his complex ( his opinion ) mental health problem. Analytic, talkative, at times irrational and over inclusive. Overall doesn't appear to be in any acute distress and wants to explore his problems, reasons and solutions. I can see some possible somatization as well. Reports that he feels much better on current meds. Denies hallucinations, delusions SI/HI. Objective - Appearance Appearance: Healthy Appearing Dysmorphic Features: No Hygiene: Normal Grooming: Fairly Well Kept - Behavior Psychomotor Activities: Normal Exhibits Abnormal Movement: No - Attitude and Relatedness Attitude and Relatedness: Appropriate Eye Contact: Good - Speech Quality: Pressured Latencies: Short Quantity: Copious - Mood Patient's Decription of Mood: "Fine" - Affect Observed Affect: Expansive Affect Consistent with: Euthymia - Thought Process Patient's Thought Process: Coherent, Over Inclusive Thought Content: No Passive Wish, No Suicidal Planning, No Homicidal Ideation, No Paranoid Ideation - Sensorium Experiencing Hallucinations: No, Sensorium is Clear Type of Hallucinations: Visual: No, Auditory: No, Command: No - Level of Consciousness Level of Consciousness: Alert Orientation: Yes Intact, Yes Orientated to Time, Yes Orientated to Place, Yes Orientated to Person - Impulse Control Impulse Control: Intact - Insight and Judgement Insight and Judgement: Poor - Group Participation Particating in Group Activities: Yes - Medication Management Medication Management Adherence: Yes Assessment - Assessment Merits Inpatient Hospitalization: Diagnosis Determination, For Ongoing Evaluation, For Discharge Planning Inpatient DSM-IV Dx: ASSESSMENT: . 1. [place] allergic response. 2. Bipolar 2 d/o, depressed, severe w/PFs. 3. Social Anxiety d/o. 4. ADHD Clinical Impression: Appears to have improved significantly and can easily be managed in an outpatient settings. Plan - Plan Treatment Plan: Name: MARY DAVIS Birthdate: 1975 [id number] Continued Medication Management: Continue Outpt Medication Medications: Current Medications Acetaminophen (Tylenol Tab*) 650 mg PO Q4H PRN PRN Reason: PAIN or TEMP > 101 F Al Hydrox/Mg Hydrox/Simethicone (Maalox Plus*) 30 ml PO Q4H PRN PRN Reason: INDIGESTION Atomoxetine HCl (Strattera(Nf)) 25 mg PO DAILY [facility] Last Admin: 02/12/17 07:16 Dose: 25 mg Clonazepam (Klonopin Tab(*)) 0.5 mg PO 0700,1400 [facility] Last Admin: 02/12/17 13:58 Dose: 0.5 mg Gabapentin (Neurontin Cap(*)) 200 mg PO TID [facility] Last Admin: 02/12/17 13:58 Dose: 200 mg Multivitamins (Theragran Tab*) 1 tab PO DAILY [facility] Last Admin: 02/12/17 09:46 Dose: Not Given Pto Nf Med* Triumeq (Abacavir, Dolutegravir, Lamivudine) 1 admin PO BEDTIME [facility] Last Admin: 02/11/17 20:04 Dose: 1 admin Zolpidem Tartrate (Ambien Tab*) 10 mg PO BEDTIME [facility] Last Admin: 02/11/17 20:53 Dose: 10 mg - Discharge Plan Discharge Plan: Outpatient Follow Up Outpatient Program: [facility]
[2017-02-12] MEDS: LAMIVUDINE PO SCH (19:36)
[2017-02-12] MEDS: ABACAVIR PO SCH (19:36)
[2017-02-12] MEDS: DOLUTEGRAVIR PO SCH (19:36)
[2017-02-12] MEDS: Zolpidem TAB* 10 MG PO SCH (21:32)
[2017-02-13] MEDS: Vitamin THERAPEUTIC TAB PO SCH (07:38)
[2017-02-13] MEDS: Gabapentin CAP(*) 100 MG PO SCH ×3 (07:38→20:11)
[2017-02-13] MEDS: CMCS: Atomoxetine(NF) 25 MG CAP PO SCH (07:39)
[2017-02-13] MEDS: clonazePAM TAB(*) 0.5 MG PO SCH ×2 (07:39→14:40)
[2017-02-13 07:57] VITALS: BP 113/76
--- NOTE | 2017-02-13 11:06 | PN ---
Subjective - Subjective Service Type: 47136 Hosp care 15 min low complexity Subjective: Patient noted to be visible in the milieu, social, cooperative and attending groups. Patient is calmer in affect and brighter. He reports improved mood and level of anxiety. Patient reports no further issues with wording finding, or decreased ability to express himself and or the delayed speech he noted on admission. He reports also feeling more in control of his thoughts. Patient does not demonstrate LYLE, but is linear and GD in TP. Patient expresses benefit from groups and displays insight to his tendency to ruminate on his observations, to the detriment of his work performance. He feels more in control of his thoughts and reports gaining coping mechanisms to help him re-focus and prioritized his thoughts. Patient is future oriented and reports desire for discharge tomorrow so to make his PCP and HIV clinic appts on . Patient reports these are out of town. Patient reports improved ability to concentrate and improved memory. He is amenable to increase in Strattera to 40mg po daily as he has noted only mod benefit on the 25mg daily dose. Patient reports no LOPEZ, CP, Abd pain. He denies N/V/C/D. He reports no issue with urination. Patient denies SI/HI and AH/VH. Sleep and appetite are wnl. Objective - Appearance Appearance: Well Developed/Nourished Dysmorphic Features: No Hygiene: Normal Grooming: Fairly Well Kept - Behavior Psychomotor Activities: Normal Exhibits Abnormal Movement: No - Attitude and Relatedness Attitude and Relatedness: Cooperative Eye Contact: Good - Speech Quality: Unpressured Latencies: Normal Quantity: Appropriate - Mood Patient's Decription of Mood: "Good" - Affect Observed Affect: Euphoric Affect Consistent with: Euthymia - Thought Process Patient's Thought Process: Coherent, Goal Directed Thought Content: No Passive Wish, No Suicidal Planning, No Homicidal Ideation, No Paranoid Ideation - Sensorium Experiencing Hallucinations: No, Sensorium is Clear Type of Hallucinations: Visual: No, Auditory: No, Command: No - Level of Consciousness Level of Consciousness: Alert Orientation: Yes Intact, Yes Orientated to Time, Yes Orientated to Place, Yes Orientated to Person - Impulse Control Impulse Control: Intact - Insight and Judgement Insight and Judgement: Fair - Group Participation Particating in Group Activities: Yes - Medication Management Medication Management Adherence: Yes Assessment - Assessment Merits Inpatient Hospitalization: For Immediate Safety, For Stabilization Inpatient DSM-IV Dx: ASSESSMENT: . 1. [place] allergic response vs toxicity. 2. Bipolar 2 d/o, depressed, severe w/PFs. 3. Social Anxiety d/o. 4. ADHD Plan - Plan Treatment Plan: Name: MARY DAVIS Birthdate: 1975 [id number] PLAN: ------ 1. Continue admission to [facility] for safety and symptom mx. 2. Continue HIV meds as currently prescribed. 3. [place] D/C'd and added as an allergy AED elevated Creatinine and decreased GFR. 5. Continue Gabapentin 200mg po BID for anxiety. 6. D/C'd Adderall due to patient's recent sensitivity to it. Likely drug-drug interactions with HIV meds affecting Adderall metabolism. 7. Increase Strattera from 25mg to 40mg po daily for mx of ADHD symptoms. 8. Continue Clonazepam 0.5mg po BID for anxiety. 9. Continue Ambien 10mg po qhs for insomnia. 10. CT brain- WNL, NAD 11. Obtain collateral from pt providers and patient's partner. 12. Patient to participate in milieu activities and groups. Continued Medication Management: Different Medication Medications: Current Medications Acetaminophen (Tylenol Tab*) 650 mg PO Q4H PRN PRN Reason: PAIN or TEMP > 101 F Al Hydrox/Mg Hydrox/Simethicone (Maalox Plus*) 30 ml PO Q4H PRN PRN Reason: INDIGESTION Atomoxetine HCl (Strattera(Nf)) 25 mg PO DAILY [facility] Last Admin: 02/13/17 07:39 Dose: 25 mg Clonazepam (Klonopin Tab(*)) 0.5 mg PO 0700,1400 [facility] Last Admin: 02/13/17 07:39 Dose: 0.5 mg Gabapentin (Neurontin Cap(*)) 200 mg PO TID [facility] Last Admin: 02/13/17 07:38 Dose: 200 mg Multivitamins (Theragran Tab*) 1 tab PO DAILY [facility] Last Admin: 02/13/17 07:38 Dose: 1 tab Pto Nf Med* Triumeq (Abacavir, Dolutegravir, Lamivudine) 1 admin PO BEDTIME [facility] Last Admin: 02/12/17 19:36 Dose: 1 admin Zolpidem Tartrate (Ambien Tab*) 10 mg PO BEDTIME [facility] Last Admin: 02/12/17 21:32 Dose: 10 mg - Discharge Plan Discharge Plan: Outpatient Follow Up Outpatient Program: Private Clinician(s)
[2017-02-13] MEDS: ABACAVIR PO SCH (20:12)
[2017-02-13] MEDS: DOLUTEGRAVIR PO SCH (20:12)
[2017-02-13] MEDS: LAMIVUDINE PO SCH (20:12)
[2017-02-13] MEDS: Zolpidem TAB* 10 MG PO SCH (21:47)
[2017-02-14] MEDS: Gabapentin CAP(*) 100 MG PO SCH ×2 (07:54→13:59)
[2017-02-14] MEDS: Vitamin THERAPEUTIC TAB PO SCH (07:54)
[2017-02-14] MEDS: clonazePAM TAB(*) 0.5 MG PO SCH ×2 (07:55→13:59)
[2017-02-14] MEDS ORDERED: CMCS:Atomoxetine (NF) 40 MG CAP PO SCH (09:00)
--- NOTE | 2017-02-14 10:17 | DS ---
Subjective - Subjective Service Types: 04921 Hosp DC Day Mgmt simple under 30 min Subjective: Patient noted again to be visible in the milieu, pleasant, social with peers and staff and participating in groups. Patient reports ongoing benefit to mood, concentration, and memory. Patient feels symptoms of Little Sturgeon toxicity, namely diminished cognition, decreased ability to recall and express himself, as well as delay in his speech have resolved. He reports good benefit to ADHD symptoms on Strattera. Patient has been med compliant. He denies med s/e's. Patient reports feeling ready for discharge. Patient is A&Ox4, linear and GD in TP, and future oriented in TC. Patient reports interest in getting back to work. Patient again denies SI/HI and AH/VH. Patient is psychiatrically stable. Discharge plan has been discussed and patient is amenable and acknowledges understanding. Patient instructed to call the crisis hotline, 911, or self present to a local ED if disorganized thought, SI or HI occur. Patient was amenable and acknowledged understanding of family and community supports. Patient will be discharged home with his partner who has come to pick him up. Objective - Appearance Appearance: Well Developed/Nourished, Thin Framed Dysmorphic Features: No Hygiene: Normal Grooming: Well Kept - Behavior Psychomotor Activities: Normal Exhibits Abnormal Movement: No - Attitude and Relatedness Attitude and Relatedness: Cooperative Eye Contact: Good - Speech Quality: Unpressured Latencies: Normal Quantity: Appropriate - Mood Patient's Decription of Mood: "Good" - Affect Observed Affect: Fair Affect Consistent with: Euthymia - Thought Process Patient's Thought Process: Coherent Thought Content: No Passive Wish, No Suicidal Planning, No Homicidal Ideation, No Paranoid Ideation - Sensorium Experiencing Hallucinations: No, Sensorium is Clear Type of Hallucinations: Visual: No, Auditory: No, Command: No - Level of Consciousness Level of Consciousness: Alert Orientation: Yes Intact, Yes Orientated to Time, Yes Orientated to Place, Yes Orientated to Person - Impulse Control Impulse Control: Intact - Insight and Judgement Insight and Judgement: Fair - Group Participation Particating in Group Activities: Yes - Medication Management Medication Management Adherence: Yes Treatment Course & Assessment Clinical Course & Impression: HOSPITAL COURSE: Patient is a 41yo male with PPHx significant for Bipolar d/o, ADHD, Social Anxiety d/o, and hx of multiple ED visits due to psychotic(paranoia/LYLE) symptoms. Patient presents to the [facility] ED, brought in by his boyfriend, reporting worsening MH symptoms over the past 3 days. Of note, patient reports recently starting Little Sturgeon. He reports started back with outpt MH services in 12/2016, after years without. Patient reports being started at that time on Little Sturgeon 300mg po TID. He reports 1 week ago his dose was increased to 1200mg daily(600mg in am, 300mg in pm, and another 300mg po qhs) for mood stabilization. Patient reports since this dose increase, he has experienced disorganized thinking, memory loss , difficulty expressing himself and delayed speech. Patient reports these symptoms have exacerbated over the last 3 days. He reports last taking Little Sturgeon the morning of presentation to the [facility] ED. Patient reports dx of ADHD and treatment with Adderall. Patient reports starting Adderall in 2002 and finding benefit to his symptoms up until 2012. He reports during 2012 dealing with SAURABH issues, and reports daily use of illicit substances. He reports sobering up within the same year. Patient reports finding after becoming sober that his Adderall dose was causing paranoia, racing thoughts, rumination and LYLE. Patient reports hx of multiple ED visits due to "noticing elements of design". Patient described this as "noticing the correlation of things". Patient reports then noticing these correlations, he would ruminate as to their meaning. Patient stated, "my inclination is to research". Of note, patient is HIV positive and has been on multiple meds which may have affected the metabolism of Adderall. Patient also would like a CT of head to r/o structural issues. Patient reports his rumination on these things have caused decreased productivity at work and recent reprimands. Patient feels these psychotic symptoms were likely amphetamine induced. Patient has since stopped Adderall about 1 month ago. He reports though ongoing rumination, LYLE, and episodes of disorganized thinking. He reports desire to start another med to mx his ADHD.On the unit, patient reports increased anxiety, ongoing LYLE, episodes of disorganized thinking, memory loss, difficulty expressing himself and delayed speech. Patient reports he has noted improved memory, difficulty expressing himself, and improved delay in his speech. Patient reports his sleep is wnl. He reports this due to benefit of Ambien. Patient denies alcohol abuse. Patient denies use of illicit substances in the last 5 years. Patient reports multiple remote suicide attempts with hospitalizations, last 5yrs ago by cutting. Patient is amenable to a wash out period without mood stabilizers over the weekend and re-evaluation of symptoms on Sunday. He reports feeling safe on the unit. He denies SI/HI and AH/VH. On admission, HIV meds were continued as currently prescribed. D/C'd Little Sturgeon and added it as an allergy AED elevated Creatinine and decreased GFR. Patient has only been on med 2 weeks. Patient gave informed consent to start Gabapentin for current anxiety. Continued to HOLD Adderall due to patient's recent sensitivity to it. Likely drug-drug interactions with HIV meds affecting Adderall metabolism. Patient reports they change frequently. Continued Ambien 10mg po qhs for insomnia. On admission day #1 Patient noted to be social with select peers and staff in the milieu. Patient calm, pleasant, and cooperative with staff. He participated in groups. Patient had ongoing PMA and is anxious in affect. He reports ongoing improvement in his memory and ability to express himself w/o delayed speech. He reports also, ongoing anxiety and LYLE which causes patient to pursue in his mind the meaning of these associations. Patient reports ongoing guilt regarding his behavior affect being diagnosed with HIV. Patients reports not behaving like himself then. He reported a period of significant drug use, anger, and sleeping with men unprotected even though knowing his Dx. Patient reports correlation with the fact that a peer on the unit he spoke with works in the [employer] department. Also during the interview, patient noticed a newspaper clipping with title '...pled not-guilty..". Patient reported these events spoke to his internalized desire to be punished for what he did. Patient encouraged to forgive himself and know he has grown from that place. Patient consumed with correlations he sees on the unit and other LYLE. Patient reported fair sleep and appetite. Patient concerned with ongoing concentration issues and desire to restart ADHD mx. He gave informed consent to start Strattera at 25mg po daily. He denied SI/HI and AH/VH. On admission day #5 patient noted to be visible in the milieu, social, cooperative and attending groups. Patient is calmer in affect and brighter. He reports improved mood and level of anxiety. Patient reported no further issues with wording finding, or decreased ability to express himself and or the delayed speech he noted on admission. He reports also feeling more in control of his thoughts. Patient did not demonstrate LYLE, and was linear and GD in TP. Patient expresses benefit from groups and displays insight to his tendency to ruminate on his observations, to the detriment of his work performance. He feels more in control of his thoughts and reports gaining coping mechanisms to help him re- focus and prioritized his thoughts. Patient is future oriented and reports desire for discharge tomorrow so to make his PCP and HIV clinic appts on . Patient reports these are out of town. Patient reports improved ability to concentrate and improved memory. He is amenable to increase in Strattera to 40mg po daily as he has noted only mod benefit on the 25mg daily dose. Patient reports no LOPEZ, CP, Abd pain. He denies N/V/C/D. He reports no issue with urination. Patient denies SI/HI and AH/VH. Sleep and appetite are wnl. On day of discharge, patient noted again to be visible in the milieu, pleasant, social with peers and staff and participating in groups. Patient reports ongoing improvements in mood, concentration, and memory. Patient feels symptoms of Little Sturgeon toxicity, namely diminished cognition, decreased ability to recall and express himself, as well as delay in his speech have resolved. He reports good benefit to ADHD symptoms on Strattera. Patient has been med compliant. He denies med s/e's. Patient reports feeling ready for discharge. Patient is A&Ox4, linear and GD in TP, and future oriented in TC. Patient reports interest in getting back to work. Patient again denies SI/HI and AH/VH. Patient is psychiatrically stable. Discharge plan has been discussed and patient is amenable and acknowledges understanding. Patient instructed to call the crisis hotline, 911, or self present to a local ED if disorganized thought, SI or HI occur. Patient was amenable and acknowledged understanding of family and community supports. Patient will be discharged home with his partner who has come to pick him up.. PERTINENT LABS: Laboratory Tests 02/07/17 02/07/17 02/07/17 14:05 15:00 15:00 WBC 5.3 RBC 5.14 Hgb 16.1 Hct 46 MCV 90 MCH 31 MCHC 35 RDW 13 Plt Count 209 MPV 10 Neut % (Auto) 59.6 Lymph % (Auto) 30.4 Benton % (Auto) 6.8 Eos % (Auto) 2.1 Baso % (Auto) 1.1 Absolute Neuts (auto) 3.2 Absolute Lymphs (auto) 1.6 Absolute Monos (auto) 0.4 Absolute Eos (auto) 0.1 Absolute Basos (auto) 0.1 Absolute Nucleated RBC 0 Nucleated RBC % 0 Sodium 138 Potassium 3.8 Chloride 104 Carbon Dioxide 28 Anion Gap 6 BUN 21 Creatinine 1.60 H Est GFR ( Amer) 62.2 Est GFR (Non-Af Amer) 48.4 BUN/Creatinine Ratio 13.1 Glucose 101 H Calcium 9.8 Total Bilirubin 0.80 AST 15 ALT 12 Alkaline Phosphatase 44 Total Protein 7.7 Albumin 4.5 Globulin 3.2 Albumin/Globulin Ratio 1.4 TSH 2.18 Urine Color Yellow Urine Appearance Cloudy Urine pH 7.0 Ur Specific Mcewen 1.023 Urine Protein Negative Urine Ketones Negative Urine Blood Negative Urine Nitrate Negative Urine Bilirubin Negative Urine Urobilinogen Positive H Ur Leukocyte Esterase Negative Urine Glucose Negative Salicylates < 2.50 Urine Opiates Screen Acetaminophen < 15 Ur Barbiturates Screen Ur Phencyclidine Scrn Ur Amphetamines Screen U Benzodiazepines Scrn Little Sturgeon 1.19 Urine Cocaine Screen U Cannabinoids Screen Serum Alcohol < 10 02/07/17 15:00 WBC RBC Hgb Hct MCV MCH MCHC RDW Plt Count MPV Neut % (Auto) Lymph % (Auto) Benton % (Auto) Eos % (Auto) Baso % (Auto) Absolute Neuts (auto) Absolute Lymphs (auto) Absolute Monos (auto) Absolute Eos (auto) Absolute Basos (auto) Absolute Nucleated RBC Nucleated RBC % Sodium Potassium Chloride Carbon Dioxide Anion Gap BUN Creatinine Est GFR ( Amer) Est GFR (Non-Af Amer) BUN/Creatinine Ratio Glucose Calcium Total Bilirubin AST ALT Alkaline Phosphatase Total Protein Albumin Globulin Albumin/Globulin Ratio TSH Urine Color Urine Appearance Urine pH Ur Specific Mcewen Urine Protein Urine Ketones Urine Blood Urine Nitrate Urine Bilirubin Urine Urobilinogen Ur Leukocyte Esterase Urine Glucose Salicylates Urine Opiates Screen None detected Acetaminophen Ur Barbiturates Screen None detected Ur Phencyclidine Scrn None detected Ur Amphetamines Screen None detected U Benzodiazepines Scrn None detected [place]geon Urine Cocaine Screen None detected U Cannabinoids Screen None detected Serum Alcohol Consultants: none Discharge Meds: Home Medications Medication Instructions Recorded Confirmed Type Oerihuid-Aabsvivjbzql-Zpuoigha 1 tab PO DAILY 07/01/16 02/08/17 History [Triumeq 600-50-300 mg] Sildenafil Citrate [Viagra] 100 mg PO DAILY PRN 07/01/16 02/08/17 History Zolpidem TAB* [Ambien*] 10 mg PO BEDTIME 07/01/16 02/08/17 History Atomoxetine (NF) [Strattera (NF)] 40 mg PO DAILY #30 cap 02/14/17 Rx Gabapentin CAP(*) [Neurontin 100 200 mg PO TID #180 cap 02/14/17 Rx mg CAP(*)] Vitamin THERAPEUTIC TAB* 1 tab PO DAILY #30 tab 02/14/17 Rx [Theragran TAB*] Zolpidem TAB* [Ambien*] 10 mg PO BEDTIME #30 tab MDD 10mg 02/14/17 Rx clonazePAM TAB(*) [Klonopin TAB(*)] 0.5 mg PO 0700,1400 #60 tab MDD 1mg Rx Follow-Up: Appt. for within the next 1 week scheduled by SW with provider. Clear for Discharge: Adequate Clinical Respons, Acceptable Safety Profile Inpatient DSM-IV Dx: 1. Little Sturgeon allergic response vs toxicity. 2. Bipolar 2 d/o , depressed, severe w/PFs. 3. Social Anxiety d/o. 4. ADHD Discharge Planning - Discharge Planning Discharge Plan: Outpatient Follow Up Outpatient Program: Private Clinician(s) Recommendations for Continuing Care: Medication Management, Psychotherapy Medications: Current Medications Acetaminophen (Tylenol Tab*) 650 mg PO Q4H PRN PRN Reason: PAIN or TEMP > 101 F Al Hydrox/Mg Hydrox/Simethicone (Maalox Plus*) 30 ml PO Q4H PRN PRN Reason: INDIGESTION Atomoxetine HCl (Strattera (Nf)) 40 mg PO DAILY GILBERTO Last Admin: 02/14/17 07:55 Dose: 40 mg Clonazepam (Klonopin Tab(*)) 0.5 mg PO 0700,1400 GILBERTO Last Admin: 02/14/17 07:55 Dose: 0.5 mg Gabapentin (Neurontin Cap(*)) 200 mg PO TID GILBERTO Last Admin: 02/14/17 07:54 Dose: 200 mg Multivitamins (Theragran Tab*) 1 tab PO DAILY GILBERTO Last Admin: 02/14/17 07:54 Dose: 1 tab Pto Nf Med* Triumeq (Abacavir, Dolutegravir, Lamivudine) 1 admin PO BEDTIME GILBERTO Last Admin: 02/13/17 20:12 Dose: 1 admin Zolpidem Tartrate (Ambien Tab*) 10 mg PO BEDTIME GILBERTO Last Admin: 02/13/17 21:47 Dose: 10 mg Discharge Planning: Prescriptions provided for discharge [x] Yes [] No Follow up care details as per social work arrangements. Patient response to discharge plan: [] eager for discharge [x] agreeable with discharge plan [] ambivalent about discharge [] disagrees with discharge today
--- NOTE | 2017-02-14 13:15 | PN ---
[facility]: Group Therapy Note - Service Type Service Type: 19299 Group Psychotherapy - Cognitive Behavioral Group Therapy ( CBT):Patient was attentive and participatory in CBT programming this morning, and remained in good behavioral control. Patient expressed positive insights regarding relevant treatment interventions and goals.
== END 2017-02-14 14:00 | disposition home or self-care (01) | DRG 753 ==
LOC: ED 13:26 → BSU 02-08 05:20
PROVIDERS: ADMIT Psychiatry & Neurology Psychiatry; ATTEND Psychiatry & Neurology Psychiatry
PROC: GZHZZZZ Group Psychotherapy (ICD-10-PCS; principal; 2017-02-09)
DX: F31.5 Bipolar disorder, current episode depressed, severe, with psychotic features (principal); F40.10 Social phobia, unspecified; T43.595A Adverse effect of other antipsychotics and neuroleptics, initial encounter; R40.2412 Glasgow coma scale score 13-15, at arrival to emergency department; F90.9 Attention-deficit hyperactivity disorder, unspecified type; Z21 Asymptomatic human immunodeficiency virus [HIV] infection status; Z91.5 Personal history of self-harm; Z87.820 Personal history of traumatic brain injury; Z88.8 Allergy status to other drugs, medicaments and biological substances; Z91.02 Food additives allergy status; Z82.49 Family history of ischemic heart disease and other diseases of the circulatory system; Z83.3 Family history of diabetes mellitus; Y92.009 Unspecified place in unspecified non-institutional (private) residence as the place of occurrence of the external cause
CPT/HCPCS: 36415; 70450; 80053; 80178; 80307; 80320; 80329; 81003; 84443; 85025; 90853; 96102; 99222; 99231; 99238; A9270-GY; G0480

== ENCOUNTER 2017-12-02 13:50 | Emergency (ER) | payer BC ==
--- OUTSIDE RECORDS SUMMARY | 2017-12-02 13:54 | XMS REPORT ---
:1975 External Reference #:[id number] Author Organization [employer] Address [address] [address] [place] [address] Phone [phone] Care Team Providers Name Role Phone Dany Vázquez MD Primary Care Physician Unavailable Payers Type Date Identification Numbers Payment Provider Subscriber Commercial Policy Number: [id number] [employer] Pal[employer]ox PayID: [id number] [address] [address] [place] [address] Problems Description No Information Family History Date Family Member(s) Problem(s) Comments General Heart Disease General Cancer General Rheumatoid Arthritis Social History Type Date Description Comments Lives With Alone Occupation Currently Working ETOH Use Occasionally consumes alcohol Smoking Patient has never smoked Exercise Type/Frequency Exercises regularly Allergies, Adverse Reactions, Alerts Date Description Reaction Status Severity Comments 11/13/2017 Adderall active 11/13/2017 [place] active Medications Medication Date Status Form Strength Qnty SIG Indications Ordering Provider Triumeq / Active Tablets 600-50-300 Unknown 0000 mg Modafinil / Active Tablets 100mg Take 1 Tablet Unknown 0000 By Mouth Two Times Daily -- Maximum Daily Dose Of 2 Tabl Cialis / Active Tablets 2.5mg Take 1 Tablet Unknown 0000 By Mouth Every Day Zolpidem / Active Tablets 10mg Dany Vázquez [place] 0000 Fish Oil / Active Capsules 435mg 2 by mouth Unknown 0000 every day Viagra / Active Tablets 100mg by mouth 0.5 Unknown 0000 or 1 tab 1h before intercourse Vital Signs Date Vital Result Comment 11/13/2017 Height 69 inches 5'9" Weight 166.50 lb Heart Rate 72 /min BP Systolic 118 mmHg BP Diastolic 68 mmHg Respiratory Rate 12 /min Body Temperature 97.1 F Pain Level 2 BMI (Body Mass Index) 24.6 kg/m2 Results Description No Information Procedures Description No Information Plan of Care Future Appointment(s):12/06/2017 8:45 am [facility] - Ceasar Mariano M.D.[id number] Sprain of unspecified ligament of right ankle, init encntrNew Xrays:Ankle Right 3+VWSNew Therapy:Physical TherapyFollow up:3-4 weeks
[2017-12-02 14:06] VITALS: BP 97/64
--- NOTE | 2017-12-02 14:42 | UC ---
Skin Complaint HPI - HPI Summary HPI Summary: This is [facility] documenting for attending physician Chel Mclaughlin MD. Pt is a 42 y/o M p/w skin complaint located on bilateral feet and ankles. Rash onset ~3 weeks ago starting with 2 or 3 red, raised bumps. Rash has worsened over recent weeks resulting in todays visit. Denies: Fever, chills, SOB, CP. PMHx: HIV (+) for 7 years. Aggr. factors: heat. He was seen last Jovanny for rash and was administered a cream that has not helped with the rash. He notes he may have had contact with fecal water. - History of Current Complaint Chief Complaint: UCRash Time Seen by Provider: 12/02/17 14:26 Stated Complaint: RASH Hx Obtained From: Patient Onset/Duration: Gradual Onset, Lasting Weeks - 3 weeks, Still Present, Worse Since - Onset Current Severity: Mild Pain Intensity: 3 Pain Scale Used: 0-10 Numeric Location: Diffuse, Foot (Right), Foot (Left), Other - R and L ankles Character: Redness, Raised Aggravating Factor(s): Other - heat application Alleviating Factor(s): Nothing Associated Signs & Symptoms: Positive: Negative - SOB, fever, chills, CP, Rash Related History: Other: - HIV (+) - Allergy/Home Medications Allergies/Adverse Reactions: Allergies Allergy/AdvReac Type Severity Reaction Status Date / Time amphetamine [From Adderall] Allergy See Comment Verified 12/02/17 14:08 dextroamphetamine Allergy See Comment Verified 12/02/17 14:08 [From Adderall] lithium Allergy See Comment Verified 12/02/17 14:08 klever flavor Allergy Swelling Verified 12/02/17 14:08 Of Face,Lips,& Throat Home Medications: Home Medications Betamethasone/Propylene Glyc [Augmented Betamethasone D] 0.05 % EX 12/02/17 [ History] Tadalafil [Cialis] 2.5 mg PO 12/02/17 [History] Review of Systems Constitutional: Negative - fever, chills Skin: Rash - bilat foot and ankles Respiratory: Negative - SOB Cardiovascular: Negative - CP Gastrointestinal: Negative Genitourinary: Negative Motor: Negative Neurovascular: Negative Musculoskeletal: Negative Psychological: Negative All Other Systems Reviewed And Are Negative: Yes PMH/Surg Hx/FS Hx/Imm Hx Previously Healthy: Yes Other Endocrine History: Neg: DM Other Cardiovascular History: Neg: HTN, CAD Other Respiratory History: Neg: Asthma Other GI/ History: negative Other History Of: HIV - diagnosed 7 to 8 years ago - Surgical History Surgical History: Yes Surgery Procedure, Year, and Place: wisdom teeth extraction - Family History Known Family History: Positive: Hypertension, Diabetes Negative: Cardiac Disease - Social History Occupation: Employed Full-time Lives: With Family Alcohol Use: Weekly Alcohol Amount: 2 beers, 3 times /week Substance Use Type: None Smoking Status (MU): Former Smoker Type: Cigarettes Amount Used/How Often: patient uses no nicotine of any type. Last smoked 5 years AFTER [employer] Have You Smoked in the Last Year: No When Did the Patient Quit Smoking/Using Tobacco: 5 years ago - Immunization History Most Recent Influenza Vaccination: states last year Most Recent Pneumonia Vaccination: never Physical Exam - Summary Physical Exam Summary: Appearance: Well-Appearing, No Pain Distress, Well-Nourished Eyes: conjunctiva clear, no discharge ENT: Hearing grossly normal, no muffled/hoarse voice. Neck: Normal, Supple Respiratory/Lung Sounds: Lungs clear, Normal breath sounds, No respiratory distress, No accessory muscle use Cardiovascular: RRR, No murmur Abdomen: Nontender, Soft, no guarding, not distended Bowel Sounds: Present Musculoskeletal: Normal Neurological: Alert, muscle tone normal Psychiatric:Normal, age appropriate behavior Skin: Warm, Dry, Normal color, multiple 1 cm sized lesions on bilat foot and ankle, slightly chanel, central vesicle, small honey clolored/ crusting discharge. No abscess, few healed lesions on the right morrissey noted. Triage Information Reviewed: Yes Appearance: Well-Appearing, No Pain Distress Vital Signs: Initial Vital Signs Temp 98.7 F 12/02/17 14:00 Pulse 61 12/02/17 14:00 Resp 18 12/02/17 14:00 BP 97/64 12/02/17 14:00 Pulse Ox 100 12/02/17 14:00 Vital Signs Reviewed: Yes Eyes: Positive: Conjunctiva Clear ENT: Positive: Pharynx normal, TMs normal. Negative: Pharyngeal erythema Respiratory Exam: Normal Course/Dx - Course Course Of Treatment: Provider examined rash located on patients bilat feet and ankles. During his visit today, we discussed the findings and further plan. I will prescribe the medication to the pharmacy . He will follow up with dermatology in 2 to 3 days. Patient expressed understanding . - Diagnoses Provider Diagnoses: folliculitis Discharge - Sign-Out/Discharge Documenting (check all that apply): Patient Departure - Discharge Plan Condition: Stable Disposition: HOME Prescriptions: Cephalexin CAP* [Keflex CAP*] 500 mg PO TID 10 Days #30 cap Patient Education Materials: Folliculitis (ED), Dermatitis (ED) Referrals: Dany Vázquez MD [Primary Care Provider] - 2 Days Magdalena Hopkins [Medical Doctor] - (2 to 3 days) Additional Instructions: Start taking the antibiotic, It has been prescribed to the pharmacy . Follow up with application coordinator in 2- 3 days. Return to Urgent care / ER if symptoms get worse. - Billing Disposition and Condition Condition: STABLE Disposition: Home
== END 2017-12-02 15:20 | disposition home or self-care (01) ==
LOC: UCEAST 13:50
DX: L73.9 Follicular disorder, unspecified (principal); Z88.8 Allergy status to other drugs, medicaments and biological substances; Z91.018 Allergy to other foods; Z87.891 Personal history of nicotine dependence
CPT/HCPCS: 99212; G0463

== ENCOUNTER 2018-12-08 20:33 | Emergency (ER) | payer BC ==
[2018-12-08 20:48] VITALS: BP 128/76
--- NOTE | 2018-12-08 20:58 | UC ---
Complaint Male HPI - HPI Summary HPI Summary: right flank pain for 2 days waxing and waning in acuteness-no fever or vomiting - History of Current Complaint Chief Complaint: UCBackPain Stated Complaint: BACK PAIN Time Seen by Provider: 12/08/18 20:43 Hx Obtained From: Patient Onset/Duration: Sudden Onset, Lasting Days - 2, Still Present Timing: Constant Pain Intensity: 7 Pain Scale Used: 0-10 Numeric Location: Flank - right Character: Colicy Aggravating Factor(s): Nothing Alleviating Factor(s): Nothing Associated Signs And Symptoms: Positive: Back Pain, Nausea - Allergies/Home Medications Allergies/Adverse Reactions: Allergies Allergy/AdvReac Type Severity Reaction Status Date / Time amphetamine [From Adderall] Allergy See Comment Verified 12/08/18 20:49 dextroamphetamine Allergy See Comment Verified 12/08/18 20:49 [From Adderall] lithium Allergy See Comment Verified 12/08/18 20:49 klever Allergy Swelling Verified 12/08/18 21:30 Of Face,Lips,& Throat klever flavor Allergy Swelling Verified 12/08/18 20:49 Of Face,Lips,& Throat PMH/Surg Hx/FS Hx/Imm Hx Previously Healthy: No Other History Of: HIV - diagnosed 7 to 8 years ago - Surgical History Surgical History: Yes Surgery Procedure, Year, and Place: wisdom teeth extraction - Family History Known Family History: Positive: Hypertension, Diabetes Negative: Cardiac Disease - Social History Occupation: Employed Full-time Lives: With Family Alcohol Use: Occasionally Alcohol Amount: 2 beers, 3 times /week Substance Use Type: None Smoking Status (MU): Former Smoker Type: Cigarettes Amount Used/How Often: patient uses no nicotine of any type. 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 Have You Smoked in the Last Year: No When Did the Patient Quit Smoking/Using Tobacco: 5 years ago - Immunization History Most Recent Influenza Vaccination: states last year Most Recent Pneumonia Vaccination: never Review of Systems All Other Systems Reviewed And Are Negative: Yes Constitutional: Positive: Negative Skin: Positive: Negative Eyes: Positive: Negative ENT: Positive: Negative Respiratory: Positive: Negative Cardiovascular: Positive: Negative Gastrointestinal: Positive: Negative Genitourinary: Positive: Hematuria, Frequency Motor: Positive: Negative Neurovascular: Positive: Negative Musculoskeletal: Positive: Arthralgia - right flank pain Neurological: Positive: Negative Psychological: Positive: Negative Is Patient Immunocompromised?: No Physical Exam Triage Information Reviewed: Yes Appearance: Well-Appearing, Well-Nourished, Pain Distress Vital Signs: Initial Vital Signs Temp 98.1 F 12/08/18 20:44 Pulse 70 12/08/18 20:44 Resp 16 12/08/18 20:44 BP 128/76 12/08/18 20:44 Pulse Ox 98 12/08/18 20:44 Vital Signs Reviewed: Yes Eye Exam: Normal Eyes: Positive: Conjunctiva Clear ENT Exam: Normal ENT: Positive: Normal ENT inspection, Hearing grossly normal. Negative: Trismus , Muffled voice, Hoarse voice Dental Exam: Normal Neck exam: Normal Neck: Positive: Supple, Nontender Respiratory Exam: Normal Respiratory: Positive: Chest non-tender, No respiratory distress, No accessory muscle use Cardiovascular Exam: Normal Cardiovascular: Positive: RRR, Pulses Normal, Brisk Capillary Refill Abdominal Exam: Other Abdomen Description: Positive: Soft, CVA Tenderness (R). Negative: McBurney's Point Tenderness Bowel Sounds: Positive: Present Musculoskeletal Exam: Normal Musculoskeletal: Positive: Strength Intact, ROM Intact, No Edema Neurological Exam: Normal Neurological: Positive: Alert, Muscle Tone Normal Psychological Exam: Normal Skin Exam: Normal Diagnostics - Laboratory Lab Results: +hematuria Complaint Male Course/Dx - Course Course Of Treatment: npo-to ed for evaluation of hematuria and flank pain - Differential Dx/Diagnosis Provider Diagnosis: Hematuria, Acute right flank pain Discharge - Sign-Out/Discharge Documenting (check all that apply): Patient Departure All imaging exams completed and their final reports reviewed: No Studies - Discharge Plan Condition: Stable Disposition: HOME-RECOMMEND TO ED Patient Education Materials: Hematuria (ED), Flank Pain (ED) Referrals: Dany Vázquez MD [Primary Care Provider] - - Billing Disposition and Condition Condition: STABLE Disposition: Home-Recommend to ED
== END 2018-12-08 21:04 | disposition home health service (06) ==
LOC: UCEAST 20:33
DX: R10.9 Unspecified abdominal pain (principal); R31.9 Hematuria, unspecified; Z87.891 Personal history of nicotine dependence; Z21 Asymptomatic human immunodeficiency virus [HIV] infection status
CPT/HCPCS: 81002; 99212; G0463

== ENCOUNTER 2018-12-08 21:19 | Emergency (ER) | payer BC ==
--- NOTE | 2018-12-08 23:20 | ED ---
Back Pain - HPI Summary HPI Summary: 43 year old M presenting to [facility] with a chief complaint of upper back pain since , 3 days ago, 12/05/18, worse since 1900 today, 12/08/18, currently rated at 0/10 in severity and described as a dull sensation. Patient reports he was lifting weight 3 days ago when the onset of the symptoms occurred in his upper back which he thought was a sprain. Patient reports he was feeling better the next day but still visited a doctor. Patient reports that he was feeling fine 2 days after but that tonight, 12/08/18, there was significant pain in his upper back again for which he took a bath to apply heat as was recommended and took Advil. Patient reports this pain was more painful than the original pain3 days ago. Patient reports todays pains onset was sudden. Hx kidney stone. Patient reports tonights pain felt more consistent with the pain felt 3-4 days before the passing of the kidney stone 10 years ago. Patient reports slight diaphoresis and nausea but denies vomiting, fevers, or chills. Symptoms aggravated by nothing. Symptoms alleviated by nothing. - History of Current Complaint Chief Complaint: EDFlankPain Stated Complaint: BACK PAIN PER PT Time Seen by Provider: 12/08/18 23:09 Hx Obtained From: Patient Onset/Duration: Lasting Days, Still Present - dull but still present Onset/Duration: Started Hours Ago - current episode started at 1900 Pain Intensity: 7 Pain Scale Used: 0-10 Numeric Aggravating Symptom(s): Nothing Alleviating Symptom(s): Nothing Associated Signs And Symptoms: Positive: Other - reports slight diaphoresis and nausea but denies vomiting, fevers, or chills. Negative: Fever - Allergies/Home Medications Allergies/Adverse Reactions: Allergies Allergy/AdvReac Type Severity Reaction Status Date / Time amphetamine [From Adderall] Allergy See Comment Verified 12/08/18 20:49 dextroamphetamine Allergy See Comment Verified 12/08/18 20:49 [From Adderall] lithium Allergy See Comment Verified 12/08/18 20:49 klever Allergy Swelling Verified 12/08/18 21:30 Of Face,Lips,& Throat klever flavor Allergy Swelling Verified 12/08/18 20:49 Of Face,Lips,& Throat PMH/Surg Hx/FS Hx/Imm Hx Endocrine/Hematology History: Denies: Hx Diabetes Cardiovascular History: Denies: Hx Hypertension, Hx Pacemaker/ICD History: Reports: Hx Renal Disease - CHRONIC KIDNEY DISORDER Sensory History: Reports: Hx Contacts or Glasses Denies: Hx Legally Blind, Hx Deafness, Hx Hearing Aid Opthamlomology History: Reports: Hx Contacts or Glasses Denies: Hx Legally Blind Psychiatric History: Reports: Hx Anxiety, Hx Attention Deficit Hyperactivity Disorder, Hx Depression, Hx Bipolar Disorder, Hx Suicide Attempt, Hx Substance Abuse Denies: Hx Panic Disorder - Cancer History Cancer Type, 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 - Surgical History Surgery Procedure, Year, and Place: wisdom teeth extraction - Immunization History Date of Tetanus Vaccine: utd Date of Influenza Vaccine: fall 2015 Infectious Disease History: Yes Infectious Disease History: Reports: Hx Human Immunodeficiency Virus (HIV) Denies: Traveled Outside the [place] in Last 30 Days - Family History Known Family History: Positive: Hypertension, Diabetes Negative: Cardiac Disease - Social History Alcohol Use: Occasionally Alcohol Amount: 2 beers, 3 times /week Hx Substance Use: No Substance Use Type: Reports: None Hx Tobacco Use: Yes Smoking Status (MU): Former Smoker Type: Cigarettes Amount Used/How Often: patient uses no nicotine of any type. 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 Negative: Fever, Chills Positive: Nausea. Negative: Vomiting Positive: Other - upper back pain All Other Systems Reviewed And Are Negative: Yes Physical Exam - Summary Physical Exam Summary: Appearance: Well-appearing, Well-nourished, lying in bed comfortably Skin: Warm, dry, no obvious rash Eyes: sclera anicteric, no conjunctival pallor ENT: mucous membranes moist, pharynx appears normal Neck: Supple, nontender Respiratory: Clear to auscultation, no signs of respiratory distress Cardiovascular: Normal S1, S2. No murmurs. Normal distal pulses in tibial and radial bilaterally. Abdomen: Soft, nontender, normal active bowel sounds present Musculoskeletal: Normal, Strength/ROM Intact Neurological: A&Ox3, awake and alert, mentation is normal, speech is fluent and appropriate Psychiatric: affect is normal, does not appear anxious or depressed Triage Information Reviewed: Yes Vital Signs On Initial Exam: Initial Vitals Temp Pulse Resp BP Pulse Ox 98.3 F 59 16 143/88 99 12/08/18 21:28 12/08/18 21:28 12/08/18 21:28 12/08/18 21:28 12/08/18 21:28 Vital Signs Reviewed: Yes Diagnostics - Vital Signs Vital Signs Temp Pulse Resp BP Pulse Ox 12/08/18 21:28 98.3 F 59 16 143/88 99 - Laboratory Result Diagrams: 12/09/18 03:04 12/09/18 03:04 Lab Statement: Any lab studies that have been ordered have been reviewed, and results considered in the medical decision making process. - Ultrasound Renal US Ultrasound Interpretation Completed By: Radiologist Summary of Ultrasound Findings: Per radiologist,. Mildly obstructing 8 mm calculus distal third left ureter. ED physician has reviewed this report. Re-Evaluation - Re-Evaluation First Eval Re-Evaluation Time: 02:40 Comment: Physician discusses plan of care with patient. Back Pain Course/Dx - Course Course Of Treatment: 43 year old M presenting to [facility] with a chief complaint of upper back pain since , 3 days ago, 12/05/18, worse since 1899 today, , currently rated at 0/10 in severity currently described as a dull sensation. Patient reports he was lifting weight 3 days ago when the onset of the symptoms occurred in his upper back which he thought was a sprain. Patient reports he was feeling better the next day but still visited a doctor. Patient reports that he was feeling fine 2 days after but that tonight, 12/08/18, there was significant pain in his upper back again for which he took a bath to apply heat as was recommended and took Advil. Patient reports this pain was more painful than the original pain3 days ago. Patient reports todays pains onset was sudden. Hx kidney stone. Patient reports tonights pain felt more consistent with the pain felt 3-4 days before the passing of the kidney stone 10 years ago. Patient reports slight diaphoresis and nausea but denies vomiting , fevers, or chills. Physical exam reveals no abnormalities. Bloodwork reveals no abnormalities except for Creatinine 1.63 H. Urinalysis reveals Urine Blood 2 + A, Urine RBC 3+ (>10/hpf) A, and Ur Squamous Epith Cells Present A. Renal Ultrasound reveals mildly obstructing 8 mm calculus distal third left ureter. Physician discusses discharge with patient who agrees to discharge. Patient will be discharged. - Diagnoses Provider Diagnoses: Kidney stone on left side Discharge - Sign-Out/Discharge Documenting (check all that apply): Patient Departure - discharge Patient Received Moderate/Deep Sedation with Procedure: No - Discharge Plan Condition: Good Disposition: HOME Prescriptions: Ondansetron ODT TAB* [Zofran 4 MG Odt TAB*] 8 mg PO Q6H PRN #12 tab.odt PRN Reason: Nausea oxyCODONE/Acetamin 5/325 MG* [Percocet 5/325 TAB*] 2 tab PO Q4H PRN #20 tab MDD 8 PRN Reason: Pain - Severe Patient Education Materials: Kidney Stones (ED) Referrals: Andrew Red MD [Medical Doctor] - Additional Instructions: We do not have a urologist operations planner right now, but Drs. Red and Yunior are generally available from their office to help members of our community with urologic problems like yours. Please call their office first thing in the morning and explain you were in the ED with a kidney stone and got an ultrasound that documented it. They have access to our computer system and can take it from there. It is a fairly large stone, so I would not be terribly surprised if they recommended a surgical procedure, but you still could pass it without surgery. I've called in prescriptions for opioid pain killer as well as zofran for nausea. I would fill those and have them on hand since the pain can flare up abruptly. Taking alleve twice a day can also help keep the pain at bay. - Billing Disposition and Condition Condition: GOOD Disposition: Home - Attestation Statements Document Initiated by Ting: Yes Documenting Scribe: Muna Rob Provider For Whom Ting is Documenting (Include Credential): Dr. Ismael Heath MD Scribe Attestation: I, Muna Rob, scribed for Dr. Ismael Heath MD on 12/10/18 at 1813. Scribe Documentation Reviewed: Yes Provider Attestation: The documentation as recorded by the Muna lewis accurately reflects the service I personally performed and the decisions made by me, Dr. Ismael Heath MD Status of Scribe Document: Viewed
[2018-12-09 02:39] LABS: Urine Appearance Clear; Urine Bacteria Absent (Absent); Urine Bilirubin Negative (Negative); Urine Blood 2+ (Negative); Urine Color Yellow; Urine Glucose Negative (Negative); Urine Ketones Negative (Negative); Urine Nitrite Negative (Negative); Urine Protein Negative (Negative); Urine Red Blood Cell 3+(>10/hpf) (Absent); Urine Specific Gravity 1.018 (1.010-1.030); Urine Squamous Epithelial Cell Present (Absent); Urine Urobilinogen Negative (Negative); Urine White Blood Cell Absent (Absent)
[2018-12-09 03:11] LABS: ABS Basophils 0.1 10^3/ul (0-0.2); ABS Eosinophils 0.1 10^3/ul (0-0.6); ABS Lymphocytes 1.9 10^3/ul (1.0-4.8); ABS Monocytes 0.5 10^3/ul (0-0.8); ABS Neutrophils 4.4 10^3/ul (1.5-7.7); Eosinophil % 0.8 %; Hematocrit 44 % (42-52); Hemoglobin 14.7 g/dL (14.0-18.0); Lymphocyte % 27.9 %; Mean Corpuscular HGB Conc 34 g/dL (31-36); Mean Corpuscular Hemoglobin 30 pg (27-31); Mean Corpuscular Volume 89 fL (80-94); Mean Platelet Volume 8.8 fL (7.4-10.4); Nucleated Red Blood Cells % 0.1; Platelet Count 185 10^3/uL (150-450); Red Cell Distribution Width 13 % (10-15); White Blood Count 6.9 10^3/uL (3.5-10.8)
[2018-12-09 03:24] VITALS: BP 120/68
[2018-12-09 03:26] LABS: Albumin 4.3 g/dL (3.2-5.2); Albumin/Globulin Ratio 1.5 (1-3); BUN/Creatinine Ratio 12.3 (8-20); Calcium 9.5 mg/dL (8.6-10.3); EGFR African American 56.7 (>60); EGFR Non-African American 46.9 (>60); Globulin 2.8 g/dL (2-4); Potassium 4.2 mmol/L (3.5-5.0); Total Bilirubin 0.7 mg/dL (0.2-1.0); Total Protein 7.1 g/dL (6.4-8.9)
== END 2018-12-09 03:23 | disposition home or self-care (01) ==
LOC: ED 21:19
DX: N20.0 Calculus of kidney (principal); Z87.442 Personal history of urinary calculi; Z87.891 Personal history of nicotine dependence; B20 Human immunodeficiency virus [HIV] disease; N18.9 Chronic kidney disease, unspecified
CPT/HCPCS: 36415; 76775; 80053; 81003; 81015; 82610; 85025; 99282

== ENCOUNTER 2018-12-11 00:46 | Observation (INO) | payer BC ==
[2018-12-11] MEDS ORDERED: HYDROmorphone INJ1* 1 MG/ML SYRINGE IV ONE (01:31)
[2018-12-11] MEDS ORDERED: Ketorolac INJ* 30 MG/ML 1 ML VIAL IV PUSH ONE (01:32)
--- NOTE | 2018-12-11 01:34 | ED ---
GI/ HPI - HPI Summary HPI Summary: A 43 y/o male presents to [facility] with a chief complaint of flank pain. The patient reports that he was in the ED three days ago with a kidney stone. He followed up with urology and was scheduled for surgery. He has been taking Advil and Oxycodone, which has not been alleviating his symptoms. He was told by his urologist to come to the ED if he continues to experience this pain. He reports continued pain and hematuria. He says that he was not given Flomax and not started on abx. - History of Current Complaint Chief Complaint: EDFlankPain Time Seen by Provider: 12/11/18 01:26 Stated Complaint: KIDNEY STONE PER PT Hx Obtained From: Patient Onset/Duration: Started Days Ago, Still Present Timing: Constant, Lasting Days Severity: Severe Current Severity: Severe Pain Intensity: 7 - out of 10 Location of Pain: Flank Pain Characteristics: Unable to describe Associated Signs and Symptoms: Positive: Hematuria. Negative: Fever Aggravating Factor(s): Nothing Alleviating Factor(s): Nothing - Additional Pertinent History Primary Care Physician: [id number] - Allergy/Home Medications Allergies/Adverse Reactions: Allergies Allergy/AdvReac Type Severity Reaction Status Date / Time amphetamine [From Adderall] Allergy See Comment Verified 12/11/18 04:26 dextroamphetamine Allergy See Comment Verified 12/11/18 04:26 [From Adderall] lithium Allergy See Comment Verified 12/11/18 04:26 klever Allergy Swelling Verified 12/11/18 04:26 Of Face,Lips,& Throat klever flavor Allergy Swelling Verified 12/11/18 04:26 Of Face,Lips,& Throat Home Medications: Home Medications Citalopram Hydrobromide [Citalopram HBr] 15 mg PO 12/11/18 [History] PMH/Surg Hx/FS Hx/Imm Hx Endocrine/Hematology History: Denies: Hx Diabetes Cardiovascular History: Denies: Hx Hypertension, Hx Pacemaker/ICD History: Reports: Hx Renal Disease - CHRONIC KIDNEY DISORDER Sensory History: Reports: Hx Contacts or Glasses Denies: Hx Legally Blind, Hx Deafness, Hx Hearing Aid Opthamlomology History: Reports: Hx Contacts or Glasses Denies: Hx Legally Blind Psychiatric History: Reports: Hx Anxiety, Hx Attention Deficit Hyperactivity Disorder, Hx Depression, Hx Bipolar Disorder, Hx Suicide Attempt, Hx Substance Abuse Denies: Hx Panic Disorder - Cancer History Cancer Type, 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 - Surgical History Surgery Procedure, Year, and Place: wisdom teeth extraction - Immunization History Date of Tetanus Vaccine: utd Date of Influenza Vaccine: fall 2015 Infectious Disease History: No Infectious Disease History: Reports: Hx Human Immunodeficiency Virus (HIV) Denies: Traveled Outside the [place] in Last 30 Days - Family History Known Family History: Positive: Hypertension, Diabetes Negative: Cardiac Disease - Social History Alcohol Use: Weekly Alcohol Amount: 2 beers, 3 times /week Hx Substance Use: No Substance Use Type: Reports: None Hx Tobacco Use: Yes Smoking Status (MU): Former Smoker Type: Cigarettes Amount Used/How Often: patient uses no nicotine of any type. 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 (-) Distressed Skin: Warm, Dry HENT: Normocephalic; Atraumatic Eyes: Conjunctiva normal Neck: Musculoskeletal ROM normal neck. (-) JVD, (-) Stridor, (-) Tracheal deviation Cardio: Rhythm regular, rate normal, Heart sounds normal; Intact distal pulses; The pedal pulses are 2+ and symmetric. Radial pulses are 2+ and symmetric. (-) Murmur Pulmonary/Chest wall: Effort normal. (-) Respiratory distress, (-) Wheezes, (-) Rales Abd: Soft, (-) tenderness, (-) Distension, (-) Guarding, (-) Rebound Musculoskeletal: (-) Edema Lymph: (-) Cervical adenopathy Neuro: Alert, Oriented x3 Psych: Mood and affect Normal Triage Information Reviewed: Yes Vital Signs On Initial Exam: Initial Vitals Temp Pulse Resp BP Pulse Ox 97.9 F 62 20 133/82 98 12/11/18 00:47 12/11/18 00:47 12/11/18 00:47 12/11/18 00:47 12/11/18 00:47 Vital Signs Reviewed: Yes Diagnostics - Vital Signs Vital Signs Temp Pulse Resp BP Pulse Ox 12/11/18 01:10 63 122/73 98 12/11/18 01:09 68 98 12/11/18 00:47 97.9 F 62 20 133/82 98 - Laboratory Result Diagrams: 12/11/18 01:56 12/11/18 01:56 Lab Statement: Any lab studies that have been ordered have been reviewed, and results considered in the medical decision making process. GIGU Course/Dx - Course Course Of Treatment: A 43 y/o male presents to [facility] with a chief complaint of flank pain. The physical exam was unremarkable. The patient reports that he was in the ED three days ago with a kidney stone. He followed up with urology and was scheduled for surgery. He has been taking Advil and Oxycodone, which has not been alleviating his symptoms. He was told by his urologist to come to the ED if he continues to experience this pain. He reports continued pain and hematuria. In the ED course the patient was given Dilaudid IV and Toradol IV. Blood work and chemistries obtained and are WNL. Case discussed with Dr. Brooke, hospitalist, who accepted the patient for admission. The patient is agreeable with this plan. - Diagnoses Provider Diagnoses: Kidney stone - Physician Notifications Discussed Care Of Patient With: Horace Brooke Time Discussed With Above Provider: 03:09 Instructed by Provider To: Admit As Inpatient Discharge - Sign-Out/Discharge Documenting (check all that apply): Patient Departure - admit Patient Received Moderate/Deep Sedation with Procedure: No - Discharge Plan Condition: Fair Disposition: ADMITTED TO [facility] Referrals: Dany Vázquez MD [Primary Care Provider] - - Billing Disposition and Condition Condition: FAIR Disposition: Admitted to [facility] - Attestation Statements Document Initiated by Mumtazibe: Yes Documenting Scribe: Fei Andrews Provider For Whom Scribe is Documenting (Include Credential): Chioma Chan MD Scribe Attestation: I, Fei Andrews, scribed for Chioma Chamberlain MD on 12/11/18 at 0429. Scribe Documentation Reviewed: Yes Provider Attestation: The documentation as recorded by the Fei lewis accurately reflects the service I personally performed and the decisions made by me, Chioma Chamberlain MD Status of Scribe Document: Viewed Consult Consult: Discussed case with Dr. Manzo, urologist, who said that he would not admit for pain control but can consult with the patient in the morning. At 16:[address] Brooke, hospitalist, who accepted the patient for admission.
[2018-12-11 02:09] LABS: ABS Eosinophils 0.1 10^3/ul (0-0.6); ABS Lymphocytes 1.2 10^3/ul (1.0-4.8); ABS Monocytes 0.8 10^3/ul (0-0.8); ABS Neutrophils 7.7 10^3/ul (1.5-7.7); Eosinophil % 0.6 %; Hematocrit 43 % (42-52); Hemoglobin 15.1 g/dL (14.0-18.0); Lymphocyte % 12.5 %; Mean Corpuscular HGB Conc 35 g/dL (31-36); Mean Corpuscular Hemoglobin 31 pg (27-31); Mean Corpuscular Volume 88 fL (80-94); Mean Platelet Volume 9.4 fL (7.4-10.4); Platelet Count 181 10^3/uL (150-450); Red Blood Count 4.92 10^6 /uL (4.18-5.48); Red Cell Distribution Width 13 % (10-15); White Blood Count 9.8 10^3/uL (3.5-10.8)
[2018-12-11 02:26] LABS: ALT 15 U/L (7-52); AST 15 U/L (13-39); Albumin 4.4 g/dL (3.2-5.2); Albumin/Globulin Ratio 1.6 (1-3); Alkaline Phosphatase 48 U/L (34-104); Anion Gap 9 mmol/L (2-11); BUN/Creatinine Ratio 13.3 (8-20); Blood Urea Nitrogen 28 mg/dL (6-24); C Reactive Protein < 1.00 mg/L (<8.01); CO2 Carbon Dioxide 24 mmol/L (22-32); Calcium 9.7 mg/dL (8.6-10.3); Chloride 103 mmol/L (101-111); EGFR African American 42.1 (>60); EGFR Non-African American 34.8 (>60); Globulin 2.8 g/dL (2-4); Glucose 115 mg/dL (70-100); Potassium 3.6 mmol/L (3.5-5.0); Sodium 136 mmol/L (135-145); Total Protein 7.2 g/dL (6.4-8.9)
[2018-12-11 04:45] LABS: Urine Appearance Cloudy; Urine Bacteria Absent (Absent); Urine Bilirubin Negative (Negative); Urine Blood 3+ (Negative); Urine Color Yellow; Urine Glucose Negative (Negative); Urine Ketones 1+ (Negative); Urine Nitrite Negative (Negative); Urine Protein 1+(30 mg/dL) (Negative); Urine Red Blood Cell 3+(>10/hpf) (Absent); Urine Specific Gravity 1.029 (1.010-1.030); Urine Urobilinogen Negative (Negative); Urine White Blood Cell Absent (Absent)
[2018-12-11] MEDS ORDERED: NS 0.9% 1000 ML** 1,000 ML IV SCH (05:45)
[2018-12-11] MEDS ORDERED: Ondansetron ODT TAB* 4 MG PO PRN (05:45)
[2018-12-11] MEDS ORDERED: oxyCODONE/Acetamin 5/325 MG* TAB PO PRN ×2 (05:45→05:47)
[2018-12-11] MEDS ORDERED: Morphine 10 MG/ML VIAL (1 ml) IV PRN (05:46)
[2018-12-11] MEDS ORDERED: ABACAVIR PO SCH ×2 (09:00→21:00)
[2018-12-11] MEDS ORDERED: DOLUTEGRAVIR PO SCH ×2 (09:00→21:00)
[2018-12-11] MEDS ORDERED: LAMIVUDI PO SCH ×2 (09:00→21:00)
--- NOTE | 2018-12-11 09:04 | HP ---
CC: Dr. Dany Vázquez; Dr. Andrew Red * ADMISSION HISTORY AND PHYSICAL: DATE OF ADMISSION: 12/11/18 PRIMARY CARE PHYSICIAN: Dr. Dany Vázquez UROLOGIST: Dr. Andrew Red CHIEF COMPLIANT: Left flank pain. HISTORY OF PRESENT ILLNESS: This is a 43-year-old male with past medical history of bipolar disorder, which is under control with depression, on medications; ADHD; social anxiety disorder; schizophrenia; CKD stage 3; HIV, came in due to left flank pain. The patient was actually seen 2 days prior in the ER and was given some Percocet and was subsequently discharged home with followup with Urology after diagnosing him to have a left ureteral stone of 8 mm. He was seen again after an x- ray of the abdomen and according to urologist , he told the patient that the patient's stone is about 5 to 6 mm and was to schedule some procedure on Sunday. However, yesterday evening, he started having severe pain, which was not controlled by his Percocet and oxycodone that he had at home, so decided to come to the ER for further evaluation. In the ER , the patient received Dilaudid, which finally controlled his pain along with Ultram and the patient was requested to be admitted for pain control. ER already spoke with Urology, who stated that they will consult in the morning. PAST MEDICAL HISTORY: As mentioned, bipolar disorder, but he has been off medications for many years. Currently, still only on medication for depression and social anxiety disorder, previous history of ADHD, HIV, insomnia. 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 HOME MEDICATIONS: The patient is on: 1. Cialis 5 mg oral. 2. Percocet 5/325 mg 2 tablets every 4 hours p.r.n. pain. 3. Ambien 10 mg oral daily at bedtime. 4. Ondansetron 8 mg p.o. q.6 hours p.r.n. nausea, vomiting. 5. Triumeq 1 tablet oral daily. 6. Citalopram 15 mg versus 20 mg oral every day. ALLERGIES: The patient documented to have allergies to ADDERALL, LITHIUM, and MARZENA. REVIEW OF SYSTEMS: A 14-point review of systems did not reveal any new information other than what is stated in the HPI. FAMILY HISTORY: Father alive at age 70, has had heart attack, requiring a coronary artery bypass grafting. Mother age also around 70, has had 3 strokes and osteoarthritis and is mostly wheelchair bound. SOCIAL HISTORY: The patient states that he quit smoking about 10 years ago, prior to that had half a pack day for 10 years and drinks about 3 to 5 beers on a weekly basis. Has used illicit drugs in the past when he was in his college years including methamphetamine and ecstasy, but never tried any injectable medications. His last use was probably over 10 years ago. 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 DIAGNOSTIC STUDIES/LAB DATA: CBC was unremarkable. Comprehensive metabolic panel shows elevated BUN, creatinine at 2.11. Urinalysis shows 1+ protein, 1+ ketone, 3+ blood. Imaging test results: KUB shows calculi on the left ureterovesical junction corresponding to the ultrasound abnormalities and renal ultrasound from 2 days ago shows mildly obstructing 8 mm calculus in the distal third left ureter. IMPRESSION: This is a 43-year-old male with multiple medical problems including depression, anxiety, human immunodeficiency virus, insomnia, here due to uncontrolled pain for left ureteral stone. ASSESSMENT/PLAN: 1. Left ureteral stone, start the patient on analgesics. We will also add Flomax daily and consult Urology to evaluate the patient and see if the patient would benefit from any urgent procedures. 2. History of human immunodeficiency virus, restart home medication. 3. History of depression and social anxiety, restart home medication. 4. History of insomnia, restart home medication. 5. DVT prophylaxis with encouraging ambulation. [id number]/[facility] #: [id number] [facility]
--- NOTE | 2018-12-11 12:49 | PN ---
Subjective - Subjective Reason for Note: Discharge Note History: Discharge summary: He developed back pain that he thought was a strain and saw me in my office 2018. 2 days later, pain worsened and he went to urgent care - found to have hematuria, sent to the ED - US/KUB demonstrated 8 mm partially obstructing left renal stone. His pain returned and was not contained by outpatient Rx. Came to the ED last night. Now the pain is beginning to return in his back, left renal angle and penis. Active Problems: Active Problems Renal colic on left side (Acute) N23 Stage 3 chronic kidney disease (Chronic) N18.3 Current Medications: Current Medications Abacavir/Dolutegravir/Lamivudine (Triumeq Tablet (Nf)) 1 tab PO 2100 [facility] Sodium Chloride (Ns 0.9% 1000 Ml) 1,000 mls @ 125 mls/hr IV PER RATE [facility] Last Admin: 12/11/18 08:58 Dose: 125 mls/hr Morphine Sulfate (Morphine 10 Mg/Ml Vial (1 Ml)) 5 mg IV Q6H PRN PRN Reason: PAIN - SEVERE Ondansetron HCl (Zofran Odt Tab*) 8 mg PO Q6H PRN PRN Reason: NAUSEA Oxycodone/Acetaminophen (Percocet 5/325 Tab*) 2 tab PO Q4H PRN PRN Reason: PAIN - MODERATE Tamsulosin HCl (Flomax Cap*) 0.4 mg PO BEDTIME [facility] Zolpidem Tartrate (Ambien Tab*) 10 mg PO BEDTIME [facility] Home Medications: Home Medications Medication Instructions Recorded Confirmed Type Abacavir/Dolutegravir/Lamivudi 1 tab PO DAILY 07/01/16 12/11/18 History [Triumeq Tablet (Nf)] Zolpidem TAB* [Ambien*] 10 mg PO BEDTIME #30 tab MDD 10mg 02/14/17 12/11/18 Rx Tadalafil [Cialis] 5 mg PO SEE INSTRUCTIONS 12/02/17 12/11/18 History Ondansetron ODT TAB* [Zofran 4 MG 8 mg PO Q6H PRN #12 tab.odt 12/09/18 12/11/18 Rx Odt TAB*] oxyCODONE/Acetamin 5/325 MG* 2 tab PO Q4H PRN #20 tab MDD 8 12/09/18 12/11/18 Rx [Percocet 5/325 TAB*] Citalopram Hydrobromide 15 mg PO 12/11/18 History [Citalopram HBr] Allergies: Allergies Allergy/AdvReac Type Severity Reaction Status Date / Time amphetamine [From Adderall] Allergy See Comment Verified 12/11/18 04:26 dextroamphetamine Allergy See Comment Verified 12/11/18 04:26 [From Adderall] lithium Allergy See Comment Verified 12/11/18 04:26 klever Allergy Swelling Verified 12/11/18 04:26 Of Face,Lips,& Throat klever flavor Allergy Swelling Verified 12/11/18 04:26 Of Face,Lips,& Throat Objective - Vital Signs Vital Signs: Vital Signs 12/11/18 12/11/18 12/11/18 00:47 01:09 01:10 Temperature 97.9 F Pulse Rate 62 68 63 Respiratory 20 Rate Blood Pressure 133/82 122/73 (mmHg) O2 Sat by Pulse 98 98 98 Oximetry 12/11/18 12/11/18 12/11/18 01:37 01:40 02:00 Temperature Pulse Rate 72 56 Respiratory 20 Rate Blood Pressure 115/74 (mmHg) O2 Sat by Pulse 99 94 Oximetry 12/11/18 12/11/18 12/11/18 02:10 02:40 03:00 Temperature Pulse Rate 61 59 53 Respiratory Rate Blood Pressure 108/68 100/66 (mmHg) O2 Sat by Pulse 94 96 95 Oximetry 12/11/18 12/11/18 12/11/18 03:10 03:40 04:00 Temperature Pulse Rate 60 67 60 Respiratory Rate Blood Pressure 100/61 99/63 (mmHg) O2 Sat by Pulse 97 96 96 Oximetry 12/11/18 12/11/18 12/11/18 04:10 04:40 05:00 Temperature Pulse Rate 65 63 49 Respiratory Rate Blood Pressure 105/67 102/64 (mmHg) O2 Sat by Pulse 96 97 95 Oximetry 12/11/18 12/11/18 12/11/18 05:10 05:40 06:00 Temperature Pulse Rate 65 53 54 Respiratory Rate Blood Pressure 108/55 106/62 (mmHg) O2 Sat by Pulse 97 97 95 Oximetry 12/11/18 12/11/18 12/11/18 06:40 06:55 07:00 Temperature 97.6 F Pulse Rate 64 60 62 Respiratory 16 Rate Blood Pressure 103/63 104/65 104/65 (mmHg) O2 Sat by Pulse 96 97 95 Oximetry 12/11/18 12/11/18 12/11/18 07:01 07:13 07:55 Temperature 97.6 F Pulse Rate 60 54 59 Respiratory 16 Rate Blood Pressure 106/65 106/65 (mmHg) O2 Sat by Pulse 96 96 96 Oximetry 12/11/18 12/11/18 12/11/18 08:00 09:52 10:24 Temperature 97.8 F Pulse Rate 62 Respiratory 16 20 20 Rate Blood Pressure 116/67 (mmHg) O2 Sat by Pulse 97 Oximetry 12/11/18 11:23 Temperature 98.3 F Pulse Rate 51 Respiratory 14 Rate Blood Pressure 101/60 (mmHg) O2 Sat by Pulse 98 Oximetry - Intake and Output Intake and Output: Intake & Output 12/09/18 12/10/18 12/11/18 12/12/18 11:59 11:59 11:59 11:59 Output Total 500 Balance -500 Weight 165 lb Output: Urine 500 ADLs: Meal Record Start: 12/11/18 08: 36 Freq: Status: Active Protocol: Created 12/11/18 08:36 System (Rec: 12/11/18 08:36 System [id number]) Document 12/11/18 11:36 [id number] (Rec: 12/11/18 11:36 [id number]) Intake and Output Start: 12/11/18 00: 52 Freq: Status: Active Protocol: Created 12/11/18 00:52 System (Rec: 12/11/18 00:52 System [id number]) Intake and Output Start: 12/11/18 08: 36 Freq: DAILY@0600,1400,2200 Status: Active Protocol: Created 12/11/18 08:36 System (Rec: 12/11/18 08:36 System [id number]) Document 12/11/18 11:27 [id number] (Rec: 12/11/18 11:29 [id number]) - Physical Exam General: No Cyanosis, No Anemia, No Jaundice, No Clubbing Lungs and Chest: Yes: Chest Expansion Full, Chest Expansion Symetrica, Percussion Note Resonant, Vessicular Breath Sounds. No: Crackles, Wheezes Heart Rate and Rhythm: Regular Additional Cardiovascular: Yes: Normal Heart Sounds. No: Heart Murmur, Pedal Edema Abdominal Exam: Yes: Soft, Abdominal Tenderness - left renal angle, Bowel Sounds Present. No: Distention, Hepatomegaly, Guarding, Rebound Tenderness Results - Results Lab Results: Laboratory Results - last 24 hr 12/11/18 12/11/18 12/11/18 01:56 01:56 01:56 WBC 9.8 RBC 4.92 Hgb 15.1 Hct 43 MCV 88 MCH 31 MCHC 35 RDW 13 Plt Count 181 MPV 9.4 Neut % (Auto) 78.8 Lymph % (Auto) 12.5 [place] % (Auto) 7.7 Eos % (Auto) 0.6 Baso % (Auto) 0.4 Absolute Neuts (auto) 7.7 Absolute Lymphs (auto) 1.2 Absolute Monos (auto) 0.8 Absolute Eos (auto) 0.1 Absolute Basos (auto) 0.0 Absolute Nucleated RBC 0.0 Nucleated RBC % 0.0 Sodium 136 Potassium 3.6 Chloride 103 Carbon Dioxide 24 Anion Gap 9 BUN 28 H Creatinine 2.11 H Est GFR ( Amer) 42.1 Est GFR (Non-Af Amer) 34.8 BUN/Creatinine Ratio 13.3 Glucose 115 H Lactic Acid 0.8 Calcium 9.7 Total Bilirubin 0.90 AST 15 ALT 15 Alkaline Phosphatase 48 C-Reactive Protein < 1.00 Total Protein 7.2 Albumin 4.4 Globulin 2.8 Albumin/Globulin Ratio 1.6 Lipase 28 Urine Color Urine Appearance Urine pH Ur Specific [place] Urine Protein Urine Ketones Urine Blood Urine Nitrate Urine Bilirubin Urine Urobilinogen Ur Leukocyte Esterase Urine WBC (Auto) Urine RBC (Auto) Urine Bacteria Urine Glucose Urine Ascorbic Acid 12/11/18 04:15 WBC RBC Hgb Hct MCV MCH MCHC RDW Plt Count MPV Neut % (Auto) Lymph % (Auto) [place] % (Auto) Eos % (Auto) Baso % (Auto) Absolute Neuts (auto) Absolute Lymphs (auto) Absolute Monos (auto) Absolute Eos (auto) Absolute Basos (auto) Absolute Nucleated RBC Nucleated RBC % Sodium Potassium Chloride Carbon Dioxide Anion Gap BUN Creatinine Est GFR ( Amer) Est GFR (Non-Af Amer) BUN/Creatinine Ratio Glucose Lactic Acid Calcium Total Bilirubin AST ALT Alkaline Phosphatase C-Reactive Protein Total Protein Albumin Globulin Albumin/Globulin Ratio Lipase Urine Color Yellow Urine Appearance Cloudy Urine pH 5.0 Ur Specific [place] 1.029 Urine Protein 1+(30 mg/dl) A Urine Ketones 1+ A Urine Blood 3+ A Urine Nitrate Negative Urine Bilirubin Negative Urine Urobilinogen Negative Ur Leukocyte Esterase Negative Urine WBC (Auto) Absent Urine RBC (Auto) 3+(>10/hpf) A Urine Bacteria Absent Urine Glucose Negative Urine Ascorbic Acid * A Radiology Results: Patient Name: MARY DAVIS Medical Record#: [id number] Ordering Physician: Andrew Red MD Acct.#: [id number] : 1975 Age: 43 Sex: M Location: IMAGING Exam Date: 12/10/18 ADM Status: REG REF Order Information: ABDOMEN/KUB 1 VW Accession Number: [id number] CPT: 50779 Indication: Ureteral calculi. Left hydronephrosis. Flat plate of the abdomen demonstrates psoas margins to be intact. There is suggestion of a calcification overlying the left transverse process of L4. This is over the left psoas margin. Additional calcification just adjacent to the left ureterovesicular Junction is noted measuring approximately 0.4 cm. This appears to correspond to the ultrasound abnormality. IMPRESSION: There is suggestion of a calculi in the left ureterovesicular junction corresponding to the ultrasound abnormality. <Electronically signed by Liane Hastings MD in [place]> 12/10/18 1558 Dictated By: Liane Hastings MD Dictated Date/Time: 12/10/18 1558 Transcribed Date/Time: 12/10/18 1556 Patient Name: MARY DAVIS Medical Record#: [id number] Ordering Physician: Ismael Heath MD Acct.#: [id number] : 1975 Age: 43 Sex: M Location: EMERGENCY DEPARTMENT Exam Date: 12/08/18 2317 ADM Status: REG ER Order Information: US RENAL LIMITED LEFT Accession Number: [id number] CPT: 72735 EXAM: US Retroperitoneal Limited, Kidneys EXAM DATE/TIME: 12/08/2018 11:52 PM CLINICAL HISTORY: 43 years old, male; Abdominal pain; Flank; Left; Additional info: Flank pain, suspect kidney stone TECHNIQUE: Imaging protocol: Real-time ultrasound of the retroperitoneum with image documentation. Examination was focused on the kidneys. COMPARISON: RENAL COM US RENAL COMPLETE 06/05/2017 3:18 PM FINDINGS: Left kidney: Left kidney measures 11.8 x 4.9 x 4.8 cm (145 cc). Mild pelvocaliectasis. No solid cortical lesions or renal calculi. Ureterectasis with a 0.8 cm calculus distal third left ureter. Bladder: Smooth-walled bladder without focal nodularity or internal debris. Only the right ureteral jet is seen. IMPRESSION: Mildly obstructing 8 mm calculus distal third left ureter. To contact [facility] with a general question: Operations Center - [phone] For direct physician to physician contact: Physician Hotline - [phone] [facility] ([facility] Facility ID #[id number]) <Electronically signed by Barbara Gomez MD in OV> 12/09/1854 Dictated By: Barbara Gomez MD Dictated Date/Time: 12/09/1854 Transcribed Date/Time: Assessment - Problem List Assessment: Patient Problems Renal colic on left side (Acute) Stage 3 chronic kidney disease (Chronic) ADHD (Chronic) Bipolar disorder, current episode depressed, severe, with psychotic features ( Chronic) [place] toxicity (Chronic) Social anxiety disorder (Chronic) Plan: Renal colic on left side (Acute) He has a left renal stone. Dr. Red is taking him to the operating room this afternoon. Hopefully he will be able to remove the stone without a stent. Most likely he will be discharged this evening after the procedure Stage 3 CKD - I am not sure of the underlying cause. This is exacerbated with the renal stone which has likely partially obstructed his left kidney Secondary diagnoses: ADHD (Chronic) Bipolar disorder, current episode depressed, severe, with psychotic features ( Chronic) [place] toxicity (Chronic) Social anxiety disorder (Chronic) Disposition: Home Condition: currently fair. I discussed with the patient the likely management. Dr. Red will decide if is ready for discharge post-procedure or if he wants to keep him in the hospital overnight.
[2018-12-11] MEDS ORDERED: Famotidine IV* 10 MG/ML 2 ML (20 mg) IV ONE (14:08)
[2018-12-11] MEDS ORDERED: Buffered Lidocaine 1% SYRIN* 1 ML/SYRINGE INTRADERM ONE (14:08)
[2018-12-11] MEDS ORDERED: cefTRIAXone(*) 1 GM ADVAN/BAG ONE (18:16)
[2018-12-11] MEDS ORDERED: fentaNYL* 50 MCG/ML 2 ML VIAL (100 MCG VIAL) IV PRN (18:23)
[2018-12-11] MEDS ORDERED: Naloxone* 0.4 MG/ML 1 ML VIAL IV PRN (18:23)
[2018-12-11] MEDS ORDERED: DiMENhydriNATE IV* 50 MG/ML VIAL IV PUSH PRN (18:23)
[2018-12-11] MEDS ORDERED: Acetaminophen TAB* 325 MG PO PRN (18:23)
[2018-12-11] MEDS ORDERED: Tamsulosin CAP* 0.4 MG PO SCH (21:00)
[2018-12-11] MEDS ORDERED: Zolpidem TAB* 10 MG PO SCH (21:00)
[2018-12-11] MEDS: Lactated Ringers 1000 ML Bag* 1,000 ML IV SCH (21:05)
[2018-12-12] MEDS: Lactated Ringers 1000 ML Bag* 1,000 ML IV SCH (05:09)
[2018-12-12 07:45] VITALS: BP 99/60
--- NOTE | 2018-12-12 07:47 | PN ---
Subjective - Subjective Reason for Note: Discharge Note History: DISCHARGE SUMMARY: The renal stone was removed successfully and he feels better today. He feels ready to go home. Active Problems: Active Problems Renal colic on left side (Acute) N23 Stage 3 chronic kidney disease (Chronic) N18.3 Current Medications: Current Medications Abacavir/Dolutegravir/Lamivudine (Triumeq Tablet (Nf)) 1 tab PO 2100 [facility] Last Admin: 12/11/18 21:40 Dose: Not Given Sodium Chloride (Ns 0.9% 1000 Ml) 1,000 mls @ 125 mls/hr IV PER RATE [facility] Last Admin: 12/11/18 08:58 Dose: 125 mls/hr Lactated Ringer's (Lactated Ringers 1000 Ml Bag*) 1,000 mls @ 125 mls/hr IV PER RATE [facility] Last Admin: 12/12/18 05:09 Dose: 125 mls/hr Morphine Sulfate (Morphine 10 Mg/Ml Vial (1 Ml)) 5 mg IV Q6H PRN PRN Reason: PAIN - SEVERE Ondansetron HCl (Zofran Odt Tab*) 8 mg PO Q6H PRN PRN Reason: NAUSEA Oxycodone/Acetaminophen (Percocet 5/325 Tab*) 2 tab PO Q4H PRN PRN Reason: PAIN - MODERATE Zolpidem Tartrate (Ambien Tab*) 10 mg PO BEDTIME [facility] Last Admin: 12/11/18 21:01 Dose: 10 mg Home Medications: Home Medications Medication Instructions Recorded Confirmed Type Abacavir/Dolutegravir/Lamivudi 1 tab PO DAILY 07/01/16 12/11/18 History [Triumeq Tablet (Nf)] Zolpidem TAB* [Ambien*] 10 mg PO BEDTIME #30 tab MDD 10mg 02/14/17 12/11/18 Rx Tadalafil [Cialis] 5 mg PO SEE INSTRUCTIONS 12/02/17 12/11/18 History Ondansetron ODT TAB* [Zofran 4 MG 8 mg PO Q6H PRN #12 tab.odt 12/09/18 12/11/18 Rx Odt TAB*] oxyCODONE/Acetamin 5/325 MG* 2 tab PO Q4H PRN #20 tab MDD 8 12/09/18 12/11/18 Rx [Percocet 5/325 TAB*] Citalopram Hydrobromide 15 mg PO 12/11/18 History [Citalopram HBr] Allergies: Allergies Allergy/AdvReac Type Severity Reaction Status Date / Time amphetamine [From Adderall] Allergy See Comment Verified 12/11/18 04:26 dextroamphetamine Allergy See Comment Verified 12/11/18 04:26 [From Adderall] lithium Allergy See Comment Verified 12/11/18 04:26 klever Allergy Swelling Verified 12/11/18 04:26 Of Face,Lips,& Throat klever flavor Allergy Swelling Verified 12/11/18 04:26 Of Face,Lips,& Throat Objective - Vital Signs Vital Signs: Vital Signs 12/11/18 12/11/18 12/11/18 07:55 08:00 09:52 Temperature 97.6 F 97.8 F Pulse Rate 59 62 Respiratory 16 16 20 Rate Blood Pressure 106/65 116/67 (mmHg) O2 Sat by Pulse 96 97 Oximetry 12/11/18 12/11/18 12/11/18 10:24 11:23 15:29 Temperature 98.3 F 97.9 F Pulse Rate 51 53 Respiratory 20 14 16 Rate Blood Pressure 101/60 115/65 (mmHg) O2 Sat by Pulse 98 98 Oximetry 12/11/18 12/11/18 12/11/18 19:41 19:45 19:50 Temperature 98.1 F Pulse Rate 66 63 53 Respiratory 16 13 15 Rate Blood Pressure 107/66 109/74 113/74 (mmHg) O2 Sat by Pulse 98 97 96 Oximetry 12/11/18 12/11/18 12/11/18 19:56 20:00 20:01 Temperature Pulse Rate 56 55 51 Respiratory 14 12 14 Rate Blood Pressure 110/71 111/81 (mmHg) O2 Sat by Pulse 97 97 96 Oximetry 12/11/18 12/11/18 12/11/18 20:05 20:13 20:15 Temperature Pulse Rate 58 60 Respiratory 12 16 Rate Blood Pressure 107/70 115/79 (mmHg) O2 Sat by Pulse 97 97 Oximetry 12/11/18 12/11/18 12/11/18 20:28 20:30 22:11 Temperature 97.8 F 98.2 F Pulse Rate 55 67 Respiratory 14 17 16 Rate Blood Pressure 107/69 109/69 (mmHg) O2 Sat by Pulse 96 96 Oximetry 12/11/18 12/11/18 12/12/18 22:13 22:39 00:31 Temperature 98.3 F 98.8 F Pulse Rate 59 58 Respiratory 17 18 16 Rate Blood Pressure 97/55 127/56 (mmHg) O2 Sat by Pulse 96 96 Oximetry 12/12/18 12/12/18 02:35 03:03 Temperature 98.6 F Pulse Rate 50 Respiratory 17 Rate Blood Pressure 96/58 (mmHg) O2 Sat by Pulse 96 96 Oximetry - Intake and Output Intake and Output: Intake & Output 12/09/18 12/10/18 12/11/18 12/12/18 11:59 11:59 11:59 11:59 Intake Total 3260 Output Total 500 855 Balance -500 2405 Weight 165 lb 165 lb Intake: IV Fluids 2480 LR 1680 NS 750 NS 50ML, Ceftriazone 1G 50 Oral 780 Output: Urine 500 855 Other: Estimated Void Medium # Voids 1 ADLs: Meal Record Start: 12/11/18 08: 36 Freq: Status: Active Protocol: Created 12/11/18 08:36 System (Rec: 12/11/18 08:36 System [id number]) Document 12/11/18 11:36 [id number] (Rec: 12/11/18 11:36 [id number] SSU-L02) Document 12/11/18 14:23 [id number] (Rec: 12/11/18 14:23 [id number] SSU-C06) Intake and Output Start: 12/11/18 00: 52 Freq: Status: Complete Protocol: Created 12/11/18 00:52 System (Rec: 12/11/18 00:52 System [id number]) Intake and Output Start: 12/11/18 08: 36 Freq: DAILY@0600,1400,2200 Status: Active Protocol: Created 12/11/18 08:36 System (Rec: 12/11/18 08:36 System [id number]) Document 12/11/18 11:27 [id number] (Rec: 12/11/18 11:29 [id number] SSU-L02) Document 12/11/18 13:05 [id number] (Rec: 12/11/18 13:05 [id number] SSU-C06) Document 12/11/18 14:00 [id number] (Rec: 12/11/18 14:23 [id number] SSU-C06) Document 12/11/18 22:16 [id number] (Rec: 12/11/18 22:17 [id number] SSU-M18) Document 12/12/18 00:27 [id number] (Rec: 12/12/18 00:27 [id number] SSU-C06) Document 12/12/18 03:28 [id number] (Rec: 12/12/18 03:28 [id number] SSU-L02) Document 12/12/18 05:11 [id number] (Rec: 12/12/18 05:11 [id number] SSU-L02) - Physical Exam General: No Cyanosis, No Anemia, No Jaundice, No Clubbing Lungs and Chest: Yes: Chest Expansion Full, Chest Expansion Symetrica, Percussion Note Resonant, Vessicular Breath Sounds. No: Crackles, Wheezes Heart Rate and Rhythm: Regular Additional Cardiovascular: Yes: Normal Heart Sounds. No: Heart Murmur, Pedal Edema Abdominal Exam: Yes: Soft, Bowel Sounds Present. No: Distention, Abdominal Tenderness Assessment - Problem List Assessment: Patient Problems Renal colic on left side (Acute) Stage 3 chronic kidney disease (Chronic) ADHD (Chronic) Bipolar disorder, current episode depressed, severe, with psychotic features ( Chronic) [place] toxicity (Chronic) Social anxiety disorder (Chronic) Plan: 1 day post stent/removal of stone: Feeling much better and ready for discharge. He has a persistently elevated Cr - it was exacerbated by this stone. His cystatin C is normal. I will investigate as an outpatient. I spoke with Dr. Red - for stent removal in 10 days. Condition: excellent disposition: Home.
[2018-12-12 08:42] LABS: BUN/Creatinine Ratio 9.9 (8-20); Calcium 9.3 mg/dL (8.6-10.3); EGFR African American 47.2 (>60); Potassium 4.5 mmol/L (3.5-5.0)
--- NOTE | 2018-12-17 12:08 | OP ---
CC: Dr. Dany Vázquez * DATE OF OPERATION: 12/11/18 - ROOM #341 DATE OF : 79 SURGEON: Andrew Red MD ANESTHESIOLOGIST: Dr. Fili Vega. ANESTHESIA: General. PRE-OP DIAGNOSES: 1. Left ureteral calculus. 2. Left renal colic due to left ureteral calculus. POST-OP DIAGNOSES: 1. Left ureteral calculus. 2. Left renal colic due to left ureteral calculus. OPERATIVE PROCEDURE: 1. Cystoscopy, left ureteroscopy, and extraction of distal left ureteral calculus. 2. Left retrograde pyelography and insertion of left ureteral stent (6-Thai). INDICATION FOR PROCEDURE: Mr. Palafox is a 43-year-old white male, who presented to the emergency room a few days ago with symptoms of left renal colic and was noted on renal ultrasound to have a 7-mm calculus in the distal left ureter. He was managed conservatively and sent home. He was evaluated in my office and had a renal ultrasound, which showed a 5- to 6-mm calculus in the distal left ureter about 1.5-cm proximal to the orifice. There was edema of the mucosa of the ureter adjacent to the stone. There was mild hydronephrosis noted. The patient was scheduled to undergo a left ureteroscopy on 12/13/18 unless he passed the stone. He presented to the emergency room last night with severe left renal colic. His serum creatinine was elevated. He was admitted by the hospitalist service for IV fluids and pain control. The patient is now taken to the operating room for extraction of the ureteral calculus. PATHOLOGY: At cystoscopy, the penile and bulbar urethrae looked normal. Examination of the bladder showed edema of the left trigone and left ureteral orifice. The rest of the bladder wall looked normal. There were no suspicious bladder lesions seen. No calculi or diverticula were noted. Upon left ureteroscopy, there was a 5- to 6-mm calculus that had the gross appearance of a calcium oxalate stone located in the distal left ureter. No other abnormalities were noted. DESCRIPTION OF PROCEDURE: After successful general anesthesia, the patient was placed in the lithotomy position and was prepped and draped for a cystoscopy. Cystoscopy was performed. The bladder was inspected and the above findings were noted. A flexible-tip guidewire was then introduced into the left ureteral orifice and positioned in the area of the renal pelvis under fluoroscopy guidance. A size 6.5 semirigid ureteroscope was then introduced inside the bladder. A flexible-tip basket was introduced through the port of the ureteroscope and its flexible tip was then introduced inside the left ureteral orifice alongside the guidewire. That allowed atraumatic introduction of the ureteroscope inside the ureter. The calculus was identified. It was engaged in the basket. It was felt to be small enough to be extracted without lasering it. The calculus was gently extracted without minimal trauma to the orifice. Left retrograde pyelography was then performed. A size 6-Thai stent was then placed with the proximal end coiling in the renal pelvis and the distal end coiling inside the bladder. There was good drainage of contrast from the kidney and no extravasation. The patient tolerated the procedure well and left the operating room in good condition. The plan is to keep the patient in the hospital overnight mostly because he will not have any care during the night at home. The serum creatinine will be rechecked in the morning to confirm that it is down. The plan will be to remove the stent in about 10 days as an outpatient in the office. [id number]/CPS #: [id number]
== END 2018-12-12 10:05 | disposition home or self-care (01) ==
LOC: ED 00:46 → SSU 05:43
PROVIDERS: ADMIT Internal Medicine; ATTEND Internal Medicine
DX: N23 Unspecified renal colic (principal); N20.1 Calculus of ureter; N18.3 Chronic kidney disease, stage 3 (moderate); F90.9 Attention-deficit hyperactivity disorder, unspecified type; F31.9 Bipolar disorder, unspecified; T56.891A Toxic effect of other metals, accidental (unintentional), initial encounter; Y92.9 Unspecified place or not applicable; F40.10 Social phobia, unspecified; Z79.899 Other long term (current) drug therapy; Z87.891 Personal history of nicotine dependence; Z21 Asymptomatic human immunodeficiency virus [HIV] infection status; F32.9 Major depressive disorder, single episode, unspecified; G47.00 Insomnia, unspecified
CPT/HCPCS: 36415; 74420; 80048; 80053; 81003; 81015; 82365; 83605; 83690; 85025; 86140; 87040; 88300; 96361; 96374; 96375; 99284; A9270-GY; C1876; G0378; J0696; J1100; J1170; J1885; J2250; J2405; J2704; J3010

== ENCOUNTER 2019-04-20 23:33 | Emergency (ER) | payer BC ==
--- NOTE | 2019-04-20 23:49 | ED ---
HPI Chest Pain - HPI Summary HPI Summary: Patient complains of sudden onset left-sided chest pain 1 hour. Pain described as intermittent, lasting minutes at a time, not related to exertion. Patient denies history of same. Denies prior cardiac history. Currently rated 1/10. Denies SOB, trauma, radiation of pain, lightheadedness, diaphoresis, fever, cough, sore throat, and/V/D, abdominal pain, change in urine, change in BM. Medical history is none. Plantar smoker, quit 10 years ago. Denies recreational drug use or excessive use caffeine, energy drinks or recreational stimulants. Positive family history, states father had an [place] at age 50. - History of Current Complaint Chief Complaint: EDChestPainROMI Time Seen by Provider: 04/20/19 23:47 Hx Obtained From: Patient Onset/Duration: Started Minutes Ago Timing: Intermittent, Lasting Minutes Initial Severity: Mild Current Severity: Mild Pain Intensity: 1 Pain Scale Used: 0-10 Numeric Chest Pain Location: Left Anterior Chest Pain Radiates: No Character: Sharp/Stabbing Aggravating Factor(s): Nothing Alleviating Factor(s): Nothing Associated Signs and Symptoms: Positive: Chest Pain - Additional Pertinent History Primary Care Physician: [id number] - Allergy/Home Medications Allergies/Adverse Reactions: Allergies Allergy/AdvReac Type Severity Reaction Status Date / Time amphetamine [From Adderall] Allergy See Comment Verified 04/20/19 23:42 dextroamphetamine Allergy See Comment Verified 04/20/19 23:42 [From Adderall] lithium Allergy See Comment Verified 04/20/19 23:42 klever Allergy Swelling Verified 04/20/19 23:42 Of Face,Lips,& Throat klever flavor Allergy Swelling Verified 04/20/19 23:42 Of Face,Lips,& Throat PMH/Surg Hx/FS Hx/Imm Hx Endocrine/Hematology History: Denies: Hx Diabetes, Hx Anemia Cardiovascular History: Denies: Hx Hypertension, Hx Pacemaker/ICD GI History: Denies: Hx Jaundice History: Reports: Hx Kidney Stones - one time 2009, Hx Renal Disease - CHRONIC KIDNEY DISORDER Musculoskeletal History: Denies: Hx Gout Sensory History: Reports: Hx Contacts or Glasses - contacts Denies: Hx Legally Blind, Hx Deafness, Hx Hearing Aid Opthamlomology History: Reports: Hx Contacts or Glasses - contacts Denies: Hx Legally Blind EENT History: Denies: Hx Deafness Neurological History: Denies: Hx Dementia Psychiatric History: Reports: Hx Anxiety, Hx Attention Deficit Hyperactivity Disorder, Hx Depression, Hx Bipolar Disorder, Hx Suicide Attempt, Hx Substance Abuse - Greater than 10 years Denies: Hx Panic Disorder - Cancer History Cancer Type, 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 Hx Chemotherapy: No Hx Radiation Therapy: No Hx Palliative Cancer Treatment: No - Surgical History Surgery Procedure, Year, and Place: wisdom teeth extraction Hx Anesthesia Reactions: No - Immunization History Date of Tetanus Vaccine: utd Date of Influenza Vaccine: fall 2015 Infectious Disease History: No Infectious Disease History: Reports: Hx Human Immunodeficiency Virus (HIV) Denies: Traveled Outside the [place] in Last 30 Days - Family History Known Family History: Positive: Hypertension, Diabetes Negative: Cardiac Disease - Social History Alcohol Use: Weekly Alcohol Amount: 2 beers, 3 times /week Hx Substance Use: No Substance Use Type: Reports: None Hx Tobacco Use: Yes Smoking Status (MU): Former Smoker Type: Cigarettes Amount Used/How Often: patient uses no nicotine of any type. Last smoked 5 years [employer] Have You Smoked in the Last Year: No Review of Systems Constitutional: Negative Eyes: Negative ENT: Negative Positive: Chest Pain Respiratory: Negative Gastrointestinal: Negative Genitourinary: Negative Musculoskeletal: Negative Skin: Negative Neurological: Negative Psychological: Normal All Other Systems Reviewed And Are Negative: Yes Physical Exam - Summary Physical Exam Summary: Chest pain not reproducible. Triage Information Reviewed: Yes Vital Signs On Initial Exam: Initial Vitals Temp Pulse Resp BP Pulse Ox 97.6 F 78 16 123/75 100 04/20/19 23:39 04/20/19 23:39 04/20/19 23:39 04/20/19 23:39 04/20/19 23:39 Vital Signs Reviewed: Yes Appearance: Positive: Well-Appearing Skin: Positive: Warm Head/Face: Positive: Normal Head/Face Inspection Eyes: Positive: Normal Neck: Positive: Supple Respiratory/Lung Sounds: Positive: Clear to Auscultation Cardiovascular: Positive: Normal Abdomen Description: Positive: Nontender Musculoskeletal: Positive: Normal Neurological: Positive: Normal Psychiatric: Positive: Normal AVPU Assessment: Alert - [place] Coma Scale Best Eye Response: 4 - Spontaneous Best Motor Response: 6 - Obeys Commands Best Verbal Response: 5 - Oriented Coma Scale Total: 15 Procedures - Sedation Patient Received Moderate/Deep Sedation with Procedure: No Diagnostics - Vital Signs Vital Signs Temp Pulse Resp BP Pulse Ox 04/20/19 23:39 97.6 F 78 16 123/75 100 - Laboratory Result Diagrams: 04/21/19 00:01 04/21/19 00:01 Lab Statement: Any lab studies that have been ordered have been reviewed, and results considered in the medical decision making process. Chest Pain Course/Dx - Course Course Of Treatment: Patient complains of sudden onset left-sided chest pain 1 hour. Pain described as intermittent, lasting minutes at a time, not related to exertion. Patient denies history of same. Denies prior cardiac history. Currently rated 1/10. Denies SOB, trauma, radiation of pain, lightheadedness, diaphoresis, fever, cough, sore throat, and/V/D, abdominal pain, change in urine , change in BM. Medical history is none. Plantar smoker, quit 10 years ago. Denies recreational drug use or excessive use caffeine, energy drinks or recreational stimulants. Positive family history, states father had an [place] at age 50. Bradycardia. Vital signs otherwise within normal limits. Labs unremarkable. EKG sinus rhythm, heart rate of 70, normal axis. No prior EKG on file. Heart score 1 - Diagnoses Provider Diagnoses: Non-cardiac chest pain Discharge ED - Sign-Out/Discharge Documenting (check all that apply): Sign-Out Patient Signing out patient TO: Ismael Heath - Discharge Plan Condition: Good Disposition: HOME Patient Education Materials: Noncardiac Chest Pain (ED) Referrals: Dany Vázquez MD [Primary Care Provider] - 3 Days Additional Instructions: The tests we ran on your heart were normal, there is no sign of heart injury or that the heart was the cause of your symptoms. It is safe to discharge you home tonight, but I would recommend making a followup visit with your regular physician to see if further workup is needed. - Billing Disposition and Condition Condition: GOOD Disposition: Home
[2019-04-21 00:14] LABS: ABS Eosinophils 0.2 10^3/ul (0-0.6); ABS Lymphocytes 2.4 10^3/ul (1.0-4.8); ABS Monocytes 0.5 10^3/ul (0-0.8); ABS Neutrophils 3.6 10^3/ul (1.5-7.7); Eosinophil % 2.5 %; Hematocrit 42 % (42-52); Lymphocyte % 35.7 %; Mean Corpuscular HGB Conc 35 g/dL (31-36); Mean Corpuscular Hemoglobin 32 pg (27-31); Mean Corpuscular Volume 90 fL (80-94); Mean Platelet Volume 9.5 fL (7.4-10.4); Nucleated Red Blood Cells % 0.4; Platelet Count 219 10^3/uL (150-450); Red Blood Count 4.72 10^6 /uL (4.18-5.48); Red Cell Distribution Width 13 % (10-15); White Blood Count 6.7 10^3/uL (3.5-10.8)
[2019-04-21 00:26] LABS: Albumin 4.4 g/dL (3.2-5.2); Albumin/Globulin Ratio 1.5 (1-3); BUN/Creatinine Ratio 16.2 (8-20); Calcium 9.9 mg/dL (8.6-10.3); EGFR African American 73.6 (>60); EGFR Non-African American 60.8 (>60); Potassium 3.8 mmol/L (3.5-5.0); Total Bilirubin 0.4 mg/dL (0.2-1.0); Total Protein 7.4 g/dL (6.4-8.9)
--- OUTSIDE RECORDS SUMMARY | 2019-04-21 00:34 | XMS REPORT ---
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, 0-24 unspecified Schizophrenia [id number] SNOMED-CT 2018-05 Active , unspecified 0-03 Relevant diagnostic tests/laboratory data Narrative No Information Procedures Procedure Code CodeSystem Target Date of Status Service Device Device Device Name Site Procedure Delivery Code Name UID Location Psychother [id number] SNOMED-CT () 2019-02-25 completed Mental apy, 45 4 Health- minutes [place] with [facility] patient [address] [place] [address], [id number] [id number] Psychother [id number] SNOMED-CT () 2019-02-21 completed Mental apy, 45 4 Health- minutes [place] with [facility] patient [address] [place] [address], [id number] [phone] Psychother [id number] SNOMED-CT () 2019-03-12 completed Mental apy, 45 4 Health- minutes [place] with [facility] patient [address] [place] [address], [id number] [phone] Psychother [id number] SNOMED-CT () 2019-03-06 completed Mental apy, 45 4 Health- minutes [place] with [facility] patient [address] [place] [address], [id number] [phone] Psychother [id number] SNOMED-CT () 2019-03-27 completed Mental apy, 45 4 Health- minutes [place] Alice with [facility] patient [address] [place] [address], [id number] [phone] Psychother [id number] SNOMED-CT () 2019-03-24 completed Mental apy, 45 4 Health- minutes [place] with [facility] patient [address] [place], [place], [id number] [phone] SNOMED-CT () 2019-02-06 completed Mental Health- [place] [address], [phone] Encounters/Encounter Diagnoses Encounter Name Encounter Diagnosis Diagnosis Diagnosis Date of Service Code Code Name CodeSystem Diagnosis Delivery Location Psychotherapy [id number] Schizophrenia SNOMED-CT 2019-04-01 Behavioral Individual 30 , unspecified [facility] min Clinic , , , Vital Signs No Information Social History Element Description Description Start End Code CodeSystem AdditionalInfo Date Date SexAssignedAtBirth Male 1975-0 M AdministrativeGender 05-31 Hospital Discharge Instructions Reason For Referral Medical Equipment FDA Assessments
--- OUTSIDE RECORDS SUMMARY | 2019-04-21 00:34 | XMS REPORT ---
:1975 Author Organization [facility] Care Team Providers Name Role Phone Ann Farmer Primary Care Physician Unavailable Allergies, Adverse Reactions, Alerts Allergy Code CodeSystem Reaction Severity Criticality Status Start Substance Date Moderate Medications Medication Medication Medication Start Stop Route Dose Status Fill Code CodeSystem Date Date Instructions RxNorm Problems Problem Name Code CodeSystem Alternate Alternate Start End Status Narrative Code CodeSystem Date Date Hyperkinetic [id number] SNOMED-CT 2018-05 Active disorder, 0-24 unspecified Schizoaffective 13753617 SNOMED-CT 2018-05 Active disorder, 0-03 Depressive type Relevant diagnostic tests/laboratory data Narrative No Information Procedures Procedure Code CodeSystem Target Date of Status Service Device Device Device Name Site Procedure Delivery Code Name UID Location Psychother [id number] SNOMED-CT () 2019-02-25 completed Mental apy, 45 4 Health- minutes [place] with [address], [id number] [phone] Psychother [id number] SNOMED-CT () 2019-02-21 completed Mental apy, 45 4 Health- minutes [place] with [address], [phone] Psychother [id number] SNOMED-CT () 2019-03-12 completed Mental apy, 45 4 Health- minutes [place] with [address], [phone] Psychother [id number] SNOMED-CT () 2019-03-06 completed Mental apy, 45 4 Health- minutes [place] with [address], [phone] [phone] SNOMED-CT () 2019-02-06 completed Mental Health- [place] [address], [phone] Encounters/Encounter Diagnoses Encounter Name Encounter Diagnosis Diagnosis Name Diagnosis Date of Service Code Code CodeSystem Diagnosis Delivery Location [place] [id number] Schizoaffective SNOMED-CT 2019-03-24 Behavioral Individual 30 disorder, Health min Depressive type Clinic , , , Vital Signs No Information Social History Element Description Description Start End Code CodeSystem AdditionalInfo Date Date SexAssignedAtBirth Male 1975-0 M AdministrativeGender 05-31 Hospital Discharge Instructions Reason For Referral Medical Equipment FDA Assessments
[2019-04-21 00:53] LABS: TSH (Thyroid Stimulating Horm) 4.79 mcIU/mL (0.34-5.60)
--- NOTE | 2019-04-21 02:48 | ED ---
Progress - Progress Note Progress Note: Patient signed out from SILVINA Hutchinson, upon shift change 04/21/19 02:30 awaiting second troponin level and pending disposition. Course/Dx - Course Course Of Treatment: Second troponin 0.00. Patient will be discharged home with follow up from his primary care provider in 3 days. Patient was instructed to return to Emergency Department for new or worsening symptoms. Patient understands and is agreeable to this plan. - Diagnoses Provider Diagnoses: Non-cardiac chest pain Discharge ED - Sign-Out/Discharge Documenting (check all that apply): Patient Departure - Discharge Plan Condition: Good Disposition: HOME Patient Education Materials: Noncardiac Chest Pain (ED) Referrals: Dany Vázquez MD [Primary Care Provider] - 3 Days Additional Instructions: The tests we ran on your heart were normal, there is no sign of heart injury or that the heart was the cause of your symptoms. It is safe to discharge you home tonight, but I would recommend making a followup visit with your regular physician to see if further workup is needed. - Billing Disposition and Condition Condition: GOOD Disposition: Home - Attestation Statements Document Initiated by Ting: Yes Documenting Scribe: Mackenzie Pickens Provider For Whom Ting is Documenting (Include Credential): Ismael Heath MD Scribe Attestation: I, Mackenzie Pickens, scribed for Ismael Heath MD on 04/21/19 at 0545. Scribe Documentation Reviewed: Yes Provider Attestation: The documentation as recorded by the Mackenzie lewis accurately reflects the service I personally performed and the decisions made by me, Ismael Heath MD Status of Scribe Document: Viewed
[2019-04-21 03:51] VITALS: BP 122/74
== END 2019-04-21 03:40 | disposition home or self-care (01) ==
LOC: ED 23:33
DX: R07.89 Other chest pain (principal); Z87.891 Personal history of nicotine dependence; Z87.442 Personal history of urinary calculi; F41.9 Anxiety disorder, unspecified
CPT/HCPCS: 36415; 71045; 80053; 83605; 84443; 84484; 85025; 93005; 99283

== ENCOUNTER 2020-06-17 19:06 | Inpatient (IN) ==
[2020-06-17 19:53] LABS: Urine Appearance Cloudy; Urine Bilirubin Negative (Negative); Urine Blood Negative (Negative); Urine Color Yellow; Urine Glucose Negative (Negative); Urine Ketones Trace (Negative); Urine Nitrite Negative (Negative); Urine Protein Negative (Negative); Urine Specific Gravity 1.021 (1.010-1.030); Urine Urobilinogen Negative (Negative)
[2020-06-17 20:06] LABS: Urine Benzodiazepine Screen None Detected (None Detect); Urine Cannabinoids Screen None Detected (None Detect); Urine Opiates Screen None Detected (None Detect)
[2020-06-17 20:12] LABS: ABS Eosinophils 0.1 10^3/ul (0-0.6); ABS Lymphocytes 1.5 10^3/ul (1.0-4.8); ABS Monocytes 0.4 10^3/ul (0-0.8); ABS Neutrophils 3.1 10^3/ul (1.5-7.7); Eosinophil % 2.2 %; Hematocrit 44 % (42-52); Hemoglobin 15.4 g/dL (14.0-18.0); Lymphocyte % 29.1 %; Mean Corpuscular HGB Conc 35 g/dL (31-36); Mean Corpuscular Hemoglobin 30 pg (27-31); Mean Corpuscular Volume 86 fL (80-94); Mean Platelet Volume 9.6 fL (7.4-10.4); Nucleated Red Blood Cells % 0.1; Platelet Count 191 10^3/uL (150-450); Red Blood Count 5.15 10^6 /uL (4.18-5.48); Red Cell Distribution Width 15 % (10-15); White Blood Count 5.1 10^3/uL (3.5-10.8)
[2020-06-17 20:26] LABS: ALT 13 U/L (7-52); Albumin 4.7 g/dL (3.2-5.2); Albumin/Globulin Ratio 1.6 (1-3); Alkaline Phosphatase 51 U/L (34-104); BUN/Creatinine Ratio 24.1 (8-20); Blood Urea Nitrogen 28 mg/dL (6-24); CO2 Carbon Dioxide 27 mmol/L (22-32); Calcium 9.8 mg/dL (8.6-10.3); Chloride 104 mmol/L (101-111); EGFR African American 83.1 (>60); EGFR Non-African American 68.7 (>60); Globulin 2.9 g/dL (2-4); Glucose 98 mg/dL (70-100); Sodium 138 mmol/L (135-145); Total Protein 7.6 g/dL (6.4-8.9)
[2020-06-17 20:55] LABS: Acetaminophen < 15 mcg/mL; Alcohol, S < 10 mg/dL (<10); Salicylate < 2.50 mg/dL (<30)
[2020-06-17 21:10] LABS: TSH Ultra Thyroid Stim Horm 1.77 mcIU/mL (0.34-5.60)
[2020-06-17 21:24] LABS: Anion Gap 7 mmol/L (2-11); Potassium 4.2 mmol/L (3.5-5.0)
[2020-06-17 21:30] LABS: AST 16 U/L (13-39)
[2020-06-18] MEDS ORDERED: Al Hydrox/Mg Hydrox/Simet LIQ 30 ML UDC PO PRN (05:03)
[2020-06-18] MEDS: Vitamin THERAPEUTIC TAB PO SCH (10:37)
[2020-06-18] MEDS: ABACAVIR PO SCH (14:55)
[2020-06-18] MEDS: DOLUTEGRAVIR PO SCH (14:55)
[2020-06-18] MEDS: LAMIVUDI PO SCH (14:55)
[2020-06-19] MEDS: ABACAVIR PO SCH (08:00)
[2020-06-19] MEDS: Amphetamine MIXED SALT 10mgTAB PO SCH ×2 (08:00→13:08)
[2020-06-19] MEDS: DOLUTEGRAVIR PO SCH (08:00)
[2020-06-19] MEDS: LAMIVUDI PO SCH (08:00)
[2020-06-19] MEDS: Vitamin THERAPEUTIC TAB PO SCH (08:01)
[2020-06-19 08:03] LABS: HDL Cholesterol 42.9 mg/dL
[2020-06-20] MEDS: DOLUTEGRAVIR PO SCH (08:00)
[2020-06-20] MEDS: LAMIVUDI PO SCH (08:00)
[2020-06-20] MEDS: Amphetamine MIXED SALT 10mgTAB PO SCH ×2 (08:00→13:03)
[2020-06-20] MEDS: ABACAVIR PO SCH (08:00)
[2020-06-20] MEDS: Vitamin THERAPEUTIC TAB PO SCH (08:02)
[2020-06-21] MEDS: Amphetamine MIXED SALT 10mgTAB PO SCH ×2 (08:01→13:06)
[2020-06-21] MEDS: Vitamin THERAPEUTIC TAB PO SCH (08:02)
[2020-06-21] MEDS: ABACAVIR PO SCH (08:03)
[2020-06-21] MEDS: DOLUTEGRAVIR PO SCH (08:03)
[2020-06-21] MEDS: LAMIVUDI PO SCH (08:03)
[2020-06-21 08:12] VITALS: BP 113/82
== END 2020-06-21 14:00 | disposition home or self-care (01) | DRG 753 ==
LOC: ED 19:06 → BSU 06-18 03:51
PROVIDERS: ADMIT Psychiatry & Neurology Psychiatry; ATTEND Psychiatry & Neurology Psychiatry